=== PATIENT | female | born 1945 | race Caucasian/White ===

== ENCOUNTER → 2019-10-22 15:01 | Outpatient (BNVA) | payer MEDICARE, BC, SELFPAY | PROVIDERS: Family Provider Internal Medicine; Visit Provider Family Medicine | DX: E03.9 Hypothyroidism, unspecified (principal); I10 Essential (primary) hypertension; M54.32 Sciatica, left side | CPT/HCPCS: 80053; 80061; 84443 ==

== ENCOUNTER → 2020-03-09 11:37 | Outpatient (BNVA) | payer MEDICARE, BC, SELFPAY | PROVIDERS: Family Provider Internal Medicine; Visit Provider Family Medicine | DX: E03.8 Other specified hypothyroidism (principal); E78.49 Other hyperlipidemia; E87.5 Hyperkalemia; Z09 Encounter for follow-up examination after completed treatment for conditions other than malignant neoplasm | CPT/HCPCS: 80053; 80061; 84443; 85025 ==

== ENCOUNTER → 2020-03-21 11:56 | Outpatient (BNVA) | payer MEDICARE, BC, SELFPAY | PROVIDERS: Family Provider Internal Medicine; Visit Provider Family Medicine | DX: R79.9 Abnormal finding of blood chemistry, unspecified (principal) | CPT/HCPCS: 80048 ==

== ENCOUNTER → 2020-05-19 10:02 | Outpatient (BNVA) | payer MEDICARE, BC, SELFPAY | PROVIDERS: Family Provider Internal Medicine; Visit Provider Family Medicine | DX: R89.9 Unspecified abnormal finding in specimens from other organs, systems and tissues (principal) | CPT/HCPCS: 80053 ==

== ENCOUNTER → 2020-10-05 15:04 | Outpatient (BNVA) | payer MEDICARE, BC, SELFPAY | PROVIDERS: Family Provider Internal Medicine; Visit Provider Family Medicine | DX: L98.9 Disorder of the skin and subcutaneous tissue, unspecified (principal); E03.8 Other specified hypothyroidism; L65.9 Nonscarring hair loss, unspecified; Z68.30 Body mass index [BMI] 30.0-30.9, adult | CPT/HCPCS: 80053; 82607; 84443; 85025 ==

== ENCOUNTER 2020-11-14 18:01 | Observation (INO) | payer MEDICARE, BC, SELFPAY ==
[2020-11-14 18:23] VITALS: BP 128/78; PULSE 124; RESP 18; TEMP 36.9; O2SAT 99; BMI 29.9
--- NOTE | 2020-11-14 20:06 | XRR_ITS ---
PROCEDURE INFORMATION: Exam: XR Chest Exam date and time: 11/14/2020 8:11 PM Age: 74 years old Clinical indication: Shortness of breath; Prior surgery; Surgery type: Lt lung; Patient HX: Low blood pressue; Additional info: SOB TECHNIQUE: Imaging protocol: XR of the chest Views: 1 view. COMPARISON: No relevant prior studies available. FINDINGS: Lungs: Postsurgical changes noted in the left lung. No focal consolidation. Pleural spaces: Unremarkable. No pleural effusion. No pneumothorax. Heart/Mediastinum: No cardiomegaly. Bones/joints: No acute fracture. XR/XR chest 1V portable [id number] IMPRESSION: No acute findings.
--- NOTE | 2020-11-14 20:06 | ECG_ITS ---
[facility] Test Date: 2020-11-14 Pat Name: Melinda Stapleton Department: Room: 108 Gender: Female Manager Gallery: : 1945 Requested By: Bill Wheeler Order Number: [id number] Robert MD: Whit Lance M.D. Measurements Intervals [place] Rate: 118 P: MS: QRS: 1 QRSD: 99 T: 38 QT: 307 QTc: 432 Interpretive Statements ATRIAL FIBRILLATION WITH RAPID VENTRICULAR RESPONSE ST DEPRESSION, CONSIDER SUBENDOCARDIAL INJURY [0.1+ mV ST DEPRESSION] No previous ECG available for comparison Electronically Signed On 11-15-2020 1:14:08 CDT by Whit Lance M.D. [id number]
--- NOTE | 2020-11-14 20:13 | ED_ITS ---
HPI - General Adult General: Chief complaint: General Medical Stated complaint: low blood pressure Time Seen by Provider: 11/14/20 19:44 Source: patient Mode of arrival: ambulatory Limitations: no limitations History of Present Illness: HPI narrative: 74-year-old female states that yesterday she had the sudden feeling of her heart racing and felt very weak. She took her blood pressure at home and it was in the 80s. States this continued throughout the night she has been feeling increasingly weak. States she did not increase her Synthroid about a month ago from 100 mcg to 125 mcg. Patient was tachycardic in the waiting room 130s. She has no history of A. fib. Denies any worsening improving factors. Associated symptoms: Reports palpitations; Deny dyspnea, nausea, rash or vomiting Review of Systems Const: Denies: fever(s), chills, body aches or change in appetite Eyes: Denies: blurry vision or eye discomfort ENMT: Denies: throat pain or dental pain Card: Reports: palpitations Resp: Denies: dyspnea GI: Denies: abdominal pain, nausea, vomiting or diarrhea : Denies: dysuria Musc: Denies: neck pain or back pain Skin/Breast: Denies: rash Neuro: Reports: weakness in extremities Psych: Denies: depression Bulmaro/Lymph: Denies: easy bruising All/Imm: Denies: urticaria [facility] ED PFSH: Medical History (Updated 11/14/20 @ 20:38 by Bill Wheeler MD) Depression History of hepatitis C Hypertension Hypothyroidism Family History Other CAD (coronary artery disease) Diabetes Hypertension Stroke Social History Smoking and tobacco status: never smoked Alcohol intake: never Physical Exam Const: COMMON NORMALS: no acute distress, patient oriented x3 and healthy appearing HENMT: COMMON NORMALS: normocephalic and atraumatic HEAD & SCALP: normocephalic and atraumatic Eye: COMMON NORMALS: Equal, round and reactive pupils present and EOMs intact bilaterally PUPIL: Yes Equal, round and reactive pupils present Neck/C-Spine: COMMON NORMALS: full ROM and supple Chest: COMMONS NORMALS: normal inspection of the chest and normal palpation of entire chest wall Resp: COMMON NORMALS: normal respiratory effort, No retractions, No use of accessory muscles and clear to auscultation bilaterally AUSCULTATION: clear to auscultation bilaterally Cardio: COMMON NORMALS: No murmurs present (Cardio) RATE: tachycardic RHYTHM: abnormal rhythm irregularly irregular GI: COMMON NORMALS: Normal to inspection, nondistended, normoactive bowel sounds present, Soft to palpation, non-tender and no masses PALPATION: Yes Soft to palpation Extremity: COMMON NORMALS: normal to inspection and full ROM Neuro: COMMON NORMALS: patient oriented x3, moves all extremities and no focal motor deficits Psych: COMMON NORMALS: mental status grossly normal, Normal thought process present and cooperative THOUGHT PROCESS: Normal thought process present Skin: COMMON NORMALS: no rashes or lesions noted and no wounds GENERAL SKIN EXAM: no rashes or lesions noted Course Vital Signs: Vital signs: Vital Signs Temperature 98.4 F 11/14/20 18:23 Pulse Rate 94 11/14/20 21:14 Respiratory Rate 21 H 11/14/20 21:14 Blood Pressure 147/91 11/14/20 21:14 Pulse Oximetry 98 11/14/20 21:14 MDM - General Adult MDM Narrative: Medical decision making narrative: Melinda presents here with feeling near syncope and hypotension yesterday likely due to new onset A. fib. From her history I believe she was likely in A. fib yesterday. She is in A. fib with RVR here is new onset. She did recently have her Synthroid increased and her thyroid level is slightly high. Patient's heart rate here is much improved on Cardizem. Spoke to hospitalist will admit. Lab Data: Labs: Lab Results 11/14/20 11/14/20 11/14/20 Range/Units 20:23 20:23 20:23 WBC Cancelled Corrected WBC Cancelled RBC Cancelled Hgb Cancelled Hct Cancelled MCV Cancelled MCH Cancelled MCHC Cancelled RDW Cancelled Plt Count Cancelled MPV Cancelled Gran % Cancelled Neut % (Auto) Cancelled Lymph % (Auto) Cancelled [place] % (Auto) Cancelled Eos % (Auto) Cancelled Baso % (Auto) Cancelled Neut # (Auto) Cancelled Lymph # (Auto) Cancelled [place] # (Auto) Cancelled Eos # (Auto) Cancelled Baso # (Auto) Cancelled Absolute Gran (aut o) Cancelled Nucleated RBC % (a uto) Cancelled Nucleated RBCs # Cancelled Sodium 132 L (136-145) mmol/L Potassium 4.2 (3.5-5.1) mmol/L Chloride 94 L (98-107) mmol/L Carbon Dioxide 24 (22-29) mmol/L Anion Gap 18.2 (5-19) BUN 19 (8-23) mg/dL Creatinine 0.8 (0.5-0.9) mg/dL GFR Calculation Not Reportable Glucose 98 (65-115) mg/dL Calculated Osmolal ity 276 L (285-295) mOsm/k g Calcium 9.5 (8.5-10.5) mg/dL Total Bilirubin 1.4 H (0.15-1.2) mg/dL AST 28 (0-32) U/L ALT 18 (0-33) U/L Alkaline Phosphata se 69 (35-105) IU/L Troponin T Baselin e 19 H (0-10) ng/L Total Protein 8.0 (6.6-8.7) g/dL Albumin 5.0 (3.5-5.2) g/dL Globulin 3.0 (1.3-4.6) g/dL TSH 0.24 L (0.27-4.20) uIU/ mL Free T4 2.16 H (0.82-1.77) ng/d L 11/14/20 Range/Units 20:51 WBC 7.8 Corrected WBC RBC 4.82 Hgb 14.4 Hct 43.8 MCV 90.9 MCH 29.9 MCHC 32.9 RDW 13.2 Plt Count 179 MPV 9.3 Gran % Neut % (Auto) 71.8 Lymph % (Auto) 18.4 [place] % (Auto) 7.8 Eos % (Auto) 0.6 Baso % (Auto) 0.8 Neut # (Auto) 5.60 Lymph # (Auto) 1.4 [place] # (Auto) 0.6 Eos # (Auto) 0.1 Baso # (Auto) 0.1 Absolute Gran (aut o) Nucleated RBC % (a uto) 0 Nucleated RBCs # 0.0 Sodium (136-145) mmol/L Potassium (3.5-5.1) mmol/L Chloride (98-107) mmol/L Carbon Dioxide (22-29) mmol/L Anion Gap (5-19) BUN (8-23) mg/dL Creatinine (0.5-0.9) mg/dL GFR Calculation Glucose (65-115) mg/dL Calculated Osmolal ity (285-295) mOsm/k g Calcium (8.5-10.5) mg/dL Total Bilirubin (0.15-1.2) mg/dL AST (0-32) U/L ALT (0-33) U/L Alkaline Phosphata se (35-105) IU/L Troponin T Baselin e (0-10) ng/L Total Protein (6.6-8.7) g/dL Albumin (3.5-5.2) g/dL Globulin (1.3-4.6) g/dL TSH (0.27-4.20) uIU/ mL Free T4 (0.82-1.77) ng/d L Imaging Data^: CXR: Attestation: I personally reviewed and interpreted this imaging study as follows: My impression: no acute abnormality EKG Data^: EKG 1: Attestation: I personally reviewed and interpreted this EKG as follows: EKG interpretation date: 11/14/20 EKG interpretation time: 20:32 Interpretation: afib hr [address] or t wave abnormalities qrs 99 qtc 377 Critical Care Time Critical Care Time: Critical Care Time: Yes Total Critical Care Time: 35 Attestation: This case had a high probability of a clinically significant, sudden, or life threatening deterioration of this patient's condition which required my full and direct attention, intervention and personal management. Discharge Plan Discharge Patient Disposition: Admitted As Inpatient Admit Provider: Betzaida Short Clinical Impression: Atrial fibrillation with RVR Condition: Stable Coding Level of Care Code ED Tool Repair Technician for Chg Fwd Exam Comprehensive
[2020-11-14] MEDS: sodium chloride 0.9% 1,000 ML 999 ML IV (20:24)
[2020-11-14 20:37] VITALS: BP 146/101; PULSE 139; RESP 31; O2SAT 98
[2020-11-14 20:52] LABS: Troponin(5th) Baseline 19 ng/L (0-10)
[2020-11-14 20:58] LABS: Basophils # 0.1 10^3/uL (0.0-0.1); Basophils % 0.8 %; Eosinophils # 0.1 10^3/uL (0.0-0.8); Eosinophils % 0.6 %; Hematocrit 43.8 % (37.0-47.0); Hemoglobin 14.4 g/dL (11.5-15.3); Lymphocytes # 1.4 10^3/uL (0.8-4.8); Lymphocytes % 18.4 %; Mean Corpuscular HGB Conc 32.9 g/dL (30.0-36.0); Mean Corpuscular Hemoglobin 29.9 pg (28.0-34.0); Mean Corpuscular Volume 90.9 fL (81-99); Mean Platelet Volume 9.3 fL (7.4-10.4); Monocytes # 0.6 10^3/uL (0.2-0.9); Monocytes % 7.8 %; Neutrophils % 71.8 %; Nucleated Red Blood Cells % 0 %; Platelet Count 179 10^3/cmm (130-400); Red Blood Count 4.82 10^6/uL (4.1-5.3); Red Cell Distribution Width 13.2 % (12.1-15.1); White Blood Count 7.8 10^3/uL (4.0-10.0)
[2020-11-14 21:02] LABS: Alkaline Phosphatase 69 IU/L (35-105); Blood Urea Nitrogen 19 mg/dL (8-23); Calcium 9.5 mg/dL (8.5-10.5); Carbon Dioxide 24 mmol/L (22-29); Chloride 94 mmol/L (98-107); Free T4 Free Thyroxine 2.16 ng/dL (0.82-1.77); Glucose 98 mg/dL (65-115); Osmolality Calculated 276 mOsm/kg (285-295); Sodium 132 mmol/L (136-145); Thyroid Stimulating Hormone 0.24 uIU/mL (0.27-4.20); Total Bilirubin 1.4 mg/dL (0.15-1.2)
[2020-11-14 21:07] LABS: Alanine Aminotransferase 18 U/L (0-33); Anion Gap 18.2 (5-19); Aspartate Amino Transferase 28 U/L (0-32); Potassium 4.2 mmol/L (3.5-5.1)
[2020-11-14 21:14] VITALS: BP 147/91; PULSE 94; RESP 21; O2SAT 98
[2020-11-14 21:37] VITALS: BP 164/101; PULSE 107; RESP 26; O2SAT 98
--- NOTE | 2020-11-14 21:37 | PM.HP ---
Providers/Chief Complaint Admitting Physician: Betzaida Short MD Primary Care Provider: Ayesha Bhatia MD Chief Complaint: low blood pressure History of Present Illness Melinda Stapleton is a 74 year old female who presented today with chief complaint of presyncope and palpitations. Patient is stating that her symptoms started on Saturday when she could not go to the jainism because she was not feeling well, she was experiencing presyncopal, her heart rate was 125, when her daughter checked on her after jainism, she was still not feeling well and decided to watch overnight, next day her heart rate was consistently around 1 20-1 30s, she went to a satellite clinic where she was recommended to go to the ER for further evaluation. She is denying chest pain, shortness of breath, nausea, vomiting, diarrhea. She is stating that recently her levothyroxine dose was increased from 100 mcg [address] Coleman because of weight gain. Diagnosis in the ER revealed A. fib RVR she was asymptomatic with normal hemodynamics. She was started on Cardizem drip when I saw her she was at Cardizem drip 10 mg/h heart rate fluctuated between 89-1 12, I started her on Eliquis, discussed indication, complications of anticoagulating agent EKG showing A. fib RVR without ischemic or infarctive changes, troponin not similarly high TSH suppressed with high free T4 Chest x-ray unremarkable Review of Systems Const: Reports: body aches and fatigue; Denies: fever(s) or chills Eyes: Denies: change in vision ENMT: Denies: throat pain Card: Denies: chest pain Resp: Reports: dyspnea GI: Denies: abdominal pain : Denies: flank pain Musc: Denies: neck pain Skin/Breast: Denies: rash Neuro: Denies: headache(s) Psych: Denies: anxiety Endo: Denies: polyuria Bulmaro/Lymph: Denies: easy bruising All/Imm: Denies: urticaria Medications/Allergies Home Medications Medication Instructions Recorded Confirmed Last Taken Type diclofenac sodium 1 % topical gel 2 gm TOPICAL QID #100 gm 10/22/19 11/14/20 Unknown Rx tramadol 50 mg tablet 50 mg PO BID PRN #30 tab 06/06/20 11/14/20 Unknown Rx Probiotic 1 tab PO DAILY@1100 11/14/20 11/14/20 11/14/20 History Refresh Dry Eye Therapy See Rx Instructions .ROUTE .COMPLEX 11/14/20 11/14/20 11/14/20 History Vitamin B-12 1 ea SUBLINGUAL DAILY@109911/14/20 11/14/20 11/14/20 History Vitamin C 1 tab PO DAILY@1100 11/14/20 11/14/20 11/14/20 History Vitamin D3 1 tab PO DAILY@1100 11/14/20 11/14/20 11/14/20 History amlodipine 5 mg PO DAILY@109911/14/20 11/14/20 11/14/20 History aspirin [Aspir-81] 81 mg PO DAILY@109911/14/20 11/14/20 11/14/20 History calcium carbonate [Caltrate 600] 600 mg PO DAILY@109911/14/20 11/14/20 11/14/20 History elderberry fruit and flower 1 cap PO DAILY@109911/14/20 11/14/20 11/14/20 History levothyroxine 125 mcg PO DAILY@109911/14/20 11/14/20 11/14/20 History losartan 100 mg PO DAILY@1100 11/14/20 11/14/20 11/14/20 History lysine 1 tab PO DAILY@109911/14/20 11/14/20 11/14/20 History Allergies Allergy/AdvReac Type Severity Reaction Status Date / Time Sulfa (Sulfonamide Allergy Mild ALGY-Rash Verified 11/14/20 18:23 Antibiotics) diazepam [From Valium] Allergy Unknown Verified 11/14/20 18:23 PFSH Acute PFSH: Medical History Benign skin lesion of face Depression Graves disease Status post iodine treatment Hair loss Hiatal hernia History of hepatitis C Hyperlipidemia Hypertension Hypothyroidism Left sciatic nerve pain Low back pain with sciatica Shingles outbreak Surgical History H/O: hysterectomy History of lung surgery After aspiration from hiatal hernia wedge resection Family History Other CAD (coronary artery disease) Diabetes Hypertension Stroke Social History Smoking and tobacco status: never smoked Alcohol intake: never Vitals/I&O/Wt Last Vital Signs Temp 98.4 F 11/14/20 18:23 Pulse 94 11/14/20 21:14 Resp 21 H 11/14/20 21:14 BP 147/91 11/14/20 21:14 Pulse Ox 98 11/14/20 21:14 Weight last 48 hrs Weight 81.647 kg Physical Exam Narrative: EXAM NARRATIVE: elderly female appears younger than stated age does not look fluid overloaded or dehydrated S1, S2 variable with systolic murmur grade 2/6 more prominent in right second intercostal space No acute respiratory distress bilateral breath sounds without adventitious rhonchi or crackles Abdomen soft nontender bowel sound present Lower extremity nonpitting edema Appropriate mood and affect EOMI, PERRLA No neurological deficits, she is awake alert oriented x3 No active chest pain Data : 11/14/20 20:51 11/14/20 20:23 A&P Assessment and plan (1) Atrial fibrillation with RVR: Status: Acute (2) Hypothyroidism: Status: Acute Qualifiers: Hypothyroidism type: other Qualified Code(s): E03.8 - Other specified hypothyroidism Additional A&P Information New onset A. fib with RVR Presyncopal episode on Saturday EKG without ischemic or infarct changes consistent with A. fib Currently on Cardizem drip 10 mg/h which will be titrated down overnight, she will be overlapped with metoprolol tartrate 25 twice a day Calvin Vascor is 4 we will start her on Eliquis 5 mg twice a day, indications, complications explained to the patient Check magnesium level, potassium level normal Echo in the morning, troponin not elevated, will request BNP and D-dimer to rule out PE Hypothyroidism: Patient has history of Graves' disease for which she received radioactive iodine treatment, currently her levothyroxine dose was increased 125 mcg, I will reduce to 112 mcg, repeat TSH in 4 to 6 weeks and follow-up with PCP Cardiac diet DVT prophylaxis: Not needed currently on Eliquis Goals of care discussed with the patient: DNR/DNI Attestations Medical Necessity Statement*: Anticipating discharge in less than 48 hours continued IV medication for A. fib RVR Time Spent in Patient Care: (>than 50% of time spent in counselling and/or direct pt care on unit). 40mins Coding Level of Care Code Acute Trophy Assembler for Chg Fwd Diagnoses Atrial fibrillation with RVR I48.91 Hypothyroidism E03.8 Hypothyroidism type: other
[2020-11-14 22:23] LABS: D Dimer 0.43 ug/mIFEU (0-0.59)
[2020-11-14 22:36] LABS: Magnesium 1.9 mg/dL (1.7-2.3); NT Pro B Type Natriuretic Pept 2907 pg/mL (0-450)
[2020-11-14 23:00] LABS: Troponin 5 2HR 18.43 ng/L (0-10)
[2020-11-14 23:06] LABS: Troponin 5 2HR Delta -0.57 ABS# (0-10)
[2020-11-14] MEDS: apixaban 5 mg Tablet PO (23:40)
[2020-11-15] VITALS (8 sets, daily range): BP systolic 132–180; BP diastolic 65–97; PULSE 76–94; RESP 19–24; TEMP 36.6–37.1; O2SAT 94–98
[2020-11-15 02:57] LABS: Anion Gap 13.5 (5-19); Blood Urea Nitrogen 17 mg/dL (8-23); Calcium 8.9 mg/dL (8.5-10.5); Carbon Dioxide 25 mmol/L (22-29); Chloride 108 mmol/L (98-107); Glucose 94 mg/dL (65-115); Osmolality Calculated 297 mOsm/kg (285-295); Potassium 3.5 mmol/L (3.5-5.1); Sodium 143 mmol/L (136-145)
[2020-11-15 02:59] LABS: Troponin 5 6HR 20.75 ng/L (0-10); Troponin 5 6HR Delta 1.75 ng/L (0-12)
--- NOTE | 2020-11-15 05:00 | USCV_ITS ---
Melinda Stapleton Age: 74 Gender: F : 1945 Exam Date: 11/15/2020 08:56 Ordering Phys: Betzaida Short MD Technologist: Vineet Marrero Exam Location: [facility] [place] Indication: AFIB BP: 151 / 78 HR: 85 Rhythm: Sinus Technical Quality: Fair MEASUREMENTS (Male / Female) Normal Values 2D ECHO LV Diastolic Diameter PLAX 3.3 cm 4.2 - 5.9 / 3.9 - 5.3 cm LV Systolic Diameter PLAX 2.1 cm IVS Diastolic Thickness 1.0 cm 0.6 - 1.0 / 0.6 - 0.9 cm IVS Systolic Thickness 1.2 cm LVPW Diastolic Thickness 1.0 cm 0.6 - 1.0 / 0.6 - 0.9 cm LVPW Systolic Thickness 1.2 cm LVOT Diameter 2.1 cm LV Ejection Fraction 2D Teich 73.2 % LV Ejection Fraction MOD 2C 71.2 % LV Ejection Fraction 2C AL 70.9 % LA Diameter 3.2 cm LA Width 3.1 cm LA Height 4.7 cm RA Width 3.2 cm RA Height 4.7 cm Aorta at Sinotubular Diameter 2.6 cm M-MODE LV Diastolic Diameter MM 5.8 cm 4.2 - 5.9 / 3.9 - 5.3 cm LV Systolic Diameter MM 4.3 cm LV Ejection Fraction MM Teich 50.8 % IVS Diastolic Thickness MM 1.0 cm 0.6 - 1.0 / 0.6 - 0.9 cm IVS Systolic Thickness MM 1.3 cm LVPW Diastolic Thickness MM 1.2 cm 0.6 - 1.0 / 0.6 - 0.9 cm LVPW Systolic Thickness MM 1.8 cm RV Diastolic Diameter MM 1.4 cm Aortic Annulus Diameter 3.4 cm LA Ao Ratio MM 1.0 MV E Point Septal Separation 0.6 cm DOPPLER AV Peak Velocity 282.0 cm/s LVOT Peak Velocity 116.0 cm/s AV Area Cont Eq vti 1.2 cm squared AV Area Cont Eq pk 1.4 cm squared MV Area PHT 5.0 cm squared Mitral E to A Ratio 4.4 MV E' Velocity 84.0 cm/s Mitral E to MV E' Ratio 12.8 Mitral E to LV E' Lateral Ratio 12.0 Mitral E to LV E' Septal Ratio 13.9 TR Peak Velocity 295.0 cm/s TR Peak Gradient 34.8 mmHg TV Peak E Velocity 102.0 cm/s Right Atrial Pressure 8.0 mmHg Pulmonary Artery Systolic Pressu 42.8 mmHg PV Peak Velocity 87.0 cm/s FINDINGS Left Ventricle Normal left ventricular size and systolic function, EF 71 %. Mild left ventricular hypertrophy. No regional wall motion abnormalities. Right Ventricle The right ventricle is normal in size and function. Right Atrium The right atrium is normal in size. Left Atrium Echodensity in the interatrial septum Mitral Valve Thickened mitral valve. Moderate mitral annular calcification. Aortic Valve Thickened aortic valve. Peak velocity across the valve is 2.8 m/s . The valve area was calculated to be 1.3 cm squared Tricuspid Valve Moderate tricuspid valve regurgitation. Pulmonic Valve Mild pulmonary valve regurgitation. Pericardium Trivial pericardial effusion. Aorta Normal ascending aorta dimension. CONCLUSIONS Normal left ventricular size and systolic function, EF 71 %. Mild left ventricular hypertrophy. No regional wall motion abnormalities. Mild ro moderate aortic valve stenosis with a valve area 1.3 cm squared Thickened mitral valve. Moderate mitral annular calcification. Estimated pulmonary artery peak systolic pressure is 35 mmHg Mild pulmonary valve regurgitation. Trivial pericardial effusion There are no intracardiac masses. No previous study is available for comparison. Dr Whit Lance MD [facility] (Electronically Signed) Final Date: 17 November 2020 00:12 S
[2020-11-15] MEDS: levothyroxine 112 mcg Tablet PO (05:06)
[2020-11-15] MEDS: magnesium oxide 400 mg tablet PO (09:50)
[2020-11-15] MEDS: apixaban 5 mg Tablet PO (09:50)
[2020-11-15] MEDS: metoprolol tartrate 25 mg Tablet 50 MG PO (09:51)
[2020-11-15] MEDS: losartan 50 mg Tablet 100 MG PO (09:56)
[2020-11-15] MEDS: aspirin 81 mg EC Tablet PO (09:56)
--- NOTE | 2020-11-15 14:53 | PM.DCS ---
Discharge Providers Date of Admission: 11/14/20 21:02 Date of Discharge: November 15, 2020 Attending Provider at Admission: Betzaida Short MD Attending Provider at Discharge: Miguel A Bhagat MD Primary Care Provider: Ayesha Bhatia MD Diagnoses at Discharge Discharge Diagnosis (1) Atrial fibrillation with RVR: Status: Acute (2) Hypothyroidism: Status: Acute Qualifiers: Hypothyroidism type: other Qualified Code(s): E03.8 - Other specified hypothyroidism Reason for Visit Reason for Visit: low blood pressure Hospital Course Hospital Course Melinda is a 74-year-old white female who presented to the hospital with feelings of palpitations and presyncope. She was found to have atrial fibrillation with rapid ventricular rate. She was placed on a Cardizem drip. [id number] score was calculated and was 4 so Eliquis was initiated. Metoprolol was started. With this Cardizem was discontinued early in the morning on November 15. Patient tolerated metoprolol without any concerns. Heart rate was approximately 75, atrial fibrillation throughout monitoring on November 15 and blood pressure was 130s over 70s. She had no symptoms with ambulation. Heart rate went up appropriately with ambulation to around 110 and rapidly decreased back to 75-80 when resting. Echocardiogram was performed and preliminary report demonstrated preserved EF, moderate aortic stenosis and moderate tricuspid regurgitation. She will follow-up with cardiology in 2 weeks. Risks and benefits of anticoagulation were discussed with her and her family and she wished to proceed with anticoagulation. Her thyroid hormone was adjusted downward based on her TSH. She was instructed to follow-up with her primary in 3 to 5 days and cardiology 2 weeks. Physical Exam Narrative: EXAM NARRATIVE: General exam is no apparent distress, conversant and pleasant Neck is supple no lymphadenopathy or thyromegaly Cardiovascular irregular, irregular without murmur Lungs clear Abdomen is soft with positive bowel sounds Extremities no cyanosis clubbing or edema Discharge Data Data Completed and Pending: Completed Studies During Hospitalization Category Date Time Status XR chest 1V noel ble [id number] Stat Exams 11/14/20 20:06 Completed Pending at discharge Category Date Time Status CV echo complete* [id number] Routine Ultrasound 11/15/20 05:00 Taken Labs from last 24 hours 11/15/20 11/15/20 11/14/20 01:52 01:52 22:20 WBC Corrected WBC RBC Hgb Hct MCV MCH MCHC RDW Plt Count MPV Gran % Neut % (Auto) Lymph % (Auto) [place] % (Auto) Eos % (Auto) Baso % (Auto) Neut # (Auto) Lymph # (Auto) [place] # (Auto) Eos # (Auto) Baso # (Auto) Absolute Gran (aut o) Nucleated RBC % (a uto) Nucleated RBCs # D-Dimer Sodium 143 Potassium 3.5 Chloride 108 H Carbon Dioxide 25 Anion Gap 13.5 BUN 17 Creatinine 0.7 GFR Calculation Not Reportable Glucose 94 Calculated Osmolal ity 297 H Calcium 8.9 Magnesium Total Bilirubin AST ALT Alkaline Phosphata se Troponin T Baselin e Troponin T 120 Min [place] 18.43 H Delta Troponin T -0.57 L Troponin T Hi Sens 6Hr 20.75 H Troponin T Hi Sens 6Hr Delta 1.75 NT-Pro-B Natriuret Pep Total Protein Albumin Globulin TSH Free T4 11/14/20 11/14/20 11/14/20 20:51 20:51 20:51 WBC 7.8 Corrected WBC RBC 4.82 Hgb 14.4 Hct 43.8 MCV 90.9 MCH 29.9 MCHC 32.9 RDW 13.2 Plt Count 179 MPV 9.3 Gran % Neut % (Auto) 71.8 Lymph % (Auto) 18.4 [place] % (Auto) 7.8 Eos % (Auto) 0.6 Baso % (Auto) 0.8 Neut # (Auto) 5.60 Lymph # (Auto) 1.4 [place] # (Auto) 0.6 Eos # (Auto) 0.1 Baso # (Auto) 0.1 Absolute Gran (aut o) Nucleated RBC % (a uto) 0 Nucleated RBCs # 0.0 D-Dimer 0.43 Sodium Potassium Chloride Carbon Dioxide Anion Gap BUN Creatinine GFR Calculation Glucose Calculated Osmolal ity Calcium Magnesium 1.9 Total Bilirubin AST ALT Alkaline Phosphata se Troponin T Baselin e Troponin T 120 Min [place] Delta Troponin T Troponin T Hi Sens 6Hr Troponin T Hi Sens 6Hr Delta NT-Pro-B Natriuret Pep 2907 H Total Protein Albumin Globulin TSH Free T4 11/14/20 11/14/20 11/14/20 20:23 20:23 20:23 WBC Cancelled Corrected WBC Cancelled RBC Cancelled Hgb Cancelled Hct Cancelled MCV Cancelled MCH Cancelled MCHC Cancelled RDW Cancelled Plt Count Cancelled MPV Cancelled Gran % Cancelled Neut % (Auto) Cancelled Lymph % (Auto) Cancelled [place] % (Auto) Cancelled Eos % (Auto) Cancelled Baso % (Auto) Cancelled Neut # (Auto) Cancelled Lymph # (Auto) Cancelled [place] # (Auto) Cancelled Eos # (Auto) Cancelled Baso # (Auto) Cancelled Absolute Gran (aut o) Cancelled Nucleated RBC % (a uto) Cancelled Nucleated RBCs # Cancelled D-Dimer Sodium 132 L Potassium 4.2 Chloride 94 L Carbon Dioxide 24 Anion Gap 18.2 BUN 19 Creatinine 0.8 GFR Calculation Not Reportable Glucose 98 Calculated Osmolal ity 276 L Calcium 9.5 Magnesium Total Bilirubin 1.4 H AST 28 ALT 18 Alkaline Phosphata se 69 Troponin T Baselin e 19 H Troponin T 120 Min [place] Delta Troponin T Troponin T Hi Sens 6Hr Troponin T Hi Sens 6Hr Delta NT-Pro-B Natriuret Pep Total Protein 8.0 Albumin 5.0 Globulin 3.0 TSH 0.24 L Free T4 2.16 H Vitals: Last Vital Signs Temp 98.6 F 11/15/20 11:41 Pulse 76 11/15/20 11:41 Resp 19 H 11/15/20 11:41 BP 134/76 11/15/20 11:41 Pulse Ox 98 11/15/20 11:41 Discharge Plan Discharge Patient Disposition: Home Condition: Stable Prescriptions: New Eliquis 5 mg Tablet 5 mg PO BID@0900,2099 Qty: 60 RF: 0 levothyroxine 112 mcg Tablet 112 mcg PO QAM Qty: 30 RF: 0 metoprolol tartrate 25 mg Tablet 50 mg PO BID@899,2099 Qty: 60 RF: 0 Continued diclofenac sodium [Voltaren] 1 % gel 2 gm TOPICAL QID Qty: 100 RF: 1 tramadol 50 mg tablet 50 mg PO BID PRN (Reason: pain) Qty: 30 RF: 0 Aspir-81 81 mg Tablet,Delayed Release (Dr/Ec) 81 mg PO DAILY@1100 RF: 0 Caltrate 600 600 mg calcium (1,500 mg) Tablet 600 mg PO DAILY@1100 RF: 0 elderberry fruit and flower 460-115 mg Capsule 1 cap PO DAILY@1100 RF: 0 Probiotic 1 tab PO DAILY@1100 RF: 0 Refresh Dry Eye Therapy See Rx Instructions .ROUTE .COMPLEX RF: 0 Vitamin B-12 1 ea sublingual DAILY@1100 RF: 0 Vitamin C 1 tab PO DAILY@1100 RF: 0 Vitamin D3 1 tab PO DAILY@1100 RF: 0 lysine 1 tab PO DAILY@1100 RF: 0 losartan 100 mg tablet 100 mg PO DAILY@1100 RF: 0 Discontinued amlodipine 5 mg tablet 5 mg PO DAILY@1100 RF: 0 levothyroxine 125 mcg tablet 125 mcg PO DAILY@1100 RF: 0 Referrals: Rukhsana Espinal MD [Physician] - 2 weeks Ayesha Bhatia MD [Primary Care Provider] - 4-7 days Discharge Diet: Cardiac Discharge Activity: Increase activity as tolerated Activity Restrictions/Additional Instructions: Take all medicine as prescribed. Monitor for nosebleeds, black or tarry stools or bright red blood per rectum and notify primary care provider if this occurs. Discharge Attestations Time Spent in Discharge Care*: greater than 30 min Quality Metrics Clinical Quality Measures During this hospital stay, did patient experience: None Coding Level of Care Code Acute Chg FW DC note Diagnoses Atrial fibrillation with RVR I48.91 Hypothyroidism E03.8 Hypothyroidism type: other
--- NOTE | 2020-11-15 16:48 | PC.NURSE ---
discharge instructions given and explained.pt verb understanding of instructions.discharged via w/c to exit.daughter to drive pt home
== END 2020-11-15 16:50 | disposition home or self-care (01) ==
LOC: ER 20:38 → CSU 21:24
PROVIDERS: Admitting Provider Internal Medicine; Emergency Provider Emergency Medicine; PCP Family Medicine; Visit Provider Internal Medicine
DX: I48.91 Unspecified atrial fibrillation (principal); E03.8 Other specified hypothyroidism; I35.0 Nonrheumatic aortic (valve) stenosis; I05.9 Rheumatic mitral valve disease, unspecified; I37.1 Nonrheumatic pulmonary valve insufficiency; E78.5 Hyperlipidemia, unspecified; I10 Essential (primary) hypertension; Z82.49 Family history of ischemic heart disease and other diseases of the circulatory system; Z83.3 Family history of diabetes mellitus
CPT/HCPCS: 36415; 71045; 80048; 80053; 83735; 83880; 84439; 84443; 84484; 85025; 85378; 93005; 93306; 96365; 96366; 96375; 99291; G0378; J3490; J7030

== ENCOUNTER → 2021-01-23 10:39 | Outpatient (BNVA) | payer MEDICARE, BC, SELFPAY | PROVIDERS: PCP Family Medicine; Visit Provider Family Medicine | DX: E03.8 Other specified hypothyroidism (principal); I10 Essential (primary) hypertension | CPT/HCPCS: 80053; 84443; 85025 ==

== ENCOUNTER 2021-02-14 08:19 | Outpatient (CLI) | payer MEDICARE, BC, SELFPAY ==
--- NOTE | 2021-02-14 08:47 | ECG_ITS ---
[facility] Test Date: 2021-02-14 Pat Name: Melinda Stapleton Department: Room: Gender: Female Dovetailer: Vicky Darden : 1945 Requested By: Rukhsana Espinal Order Number: [id number] Robert MD: Rukhsana Espinal M.D. Interpretive Statements NAME OF STUDY: LEXISCAN SESTAMIBI STRESS TEST INDICATION: Chest Pain PROCEDURE: At the baseline, the blood pressure was 172/101 mmHg, oxygen saturation 94% with a heart rate of 85 bpm. The electrocardiogram showed atrial fibrillation with controlled ventricular response. Normal axis with possible old anterior infarct. Nonspecific ST-T wave changes. The Lexiscan was infused over a period of 20 seconds. A total of 0.4 milligrams of Lexiscan was infused. The stress phase was continued for a total of 5 minutes. Heart rate at the end of the stress phase was 99 bpm, oxygen saturation 93% with a blood pressure of 154/72 mmHg. The EKG at the peak infusion revealed no significant ST-T wave changes. The study was terminated due to protocol completion. Sestamibi was injected 20 seconds after the Lexiscan infusion. Blood pressure at the end of the recovery phase was 129/87 mmHg, oxygen saturation 91% with a heart rate of 93 beats per minute. CONCLUSION: 1. No significant EKG changes with the LexiScan infusion. 2. No LexiScan induced chest pain or cardiac arrhythmia. 3. Normal blood pressure and heart rate response. 4. Sestamibi/sestamibi perfusion scan pending; see separate report. Electronically Signed On 02-20-2021 13:02:23 CDT by Rukhsana Espinal M.D. [id number]
--- NOTE | 2021-02-14 08:47 | NMCV_ITS ---
NM eric perf SPECT r/s* [id number] Stapleton Melinda Age: 75 Gender: F : 1945 Exam Date: 02/14/2021 09:53 Ordering Phys: Rukhsana Espinal MD ([email or web address]) Technologist: SANDRA Stern Exam Location: [facility] Indications: DYSPNEA ON EXERTION STRESS TEST Please see separate stress test report in [facility] for full findings IMAGE PROTOCOL Rest/Stress 1 Lexiscan Day Radiopharmaceutical Dose (mCi) Administration Site Administered by Rest: Tc-99m 10.8 IV SANDRA Stern Sestamibi Stress:Tc-99m 32.7 IV SANDRA Dave Sestamibi Rest: 14-Feb-2021 60 Discovery 630 Stress: 14-Feb-2021 30 Discovery 630 0.4mg Lexiscan. Images obtained in supine and prone position. SPECT RESULTS Technical Quality: Excellent Raw Data Analysis: Normal Image Corrections: No attenuation or motion correction applied Summed Stress Score: 0 Summed Rest Score: 0 Summed Difference Score: 0 PERFUSION FINDINGS SPECT images demonstrate homogeneous tracer distribution throughout the myocardium. FUNCTIONAL RESULTS (calculated via Gated SPECT) Stress Image LV EF (%): 84 Stress EDV (mL):51 TID: 0.93 Stress ESV (mL):8 FUNCTIONAL FINDINGS: The left ventricle is normal in size. Transient Ischemia Dilatation of 0.93. There is normal left ventricular systolic function. The left ventricular ejection fraction is hyperdynamic with a value of 84%. There is normal left ventricular wall thickening with no regional wall motion abnormality. IMPRESSIONS 1. Myocardial perfusion imaging is normal. 2. Overall left ventricular systolic function is normal without regional wall motion abnormalities. 3. The left ventricular ejection fraction is hyperdynamic with a value of 84%. 4. Scan indicates low risk for cardiac events. Rukhsana Espinal MD (Electronically Signed) Final Date: 16 February 2021 19:43 S
[2021-02-14 08:48] VITALS: BMI 27.9
[2021-02-14] MEDS: regadenoson 0.4 Mg/5 ml Syringe IVP (10:39)
[2021-02-14] MEDS: ondansetron 2 mg/ML SDV 2 mL 4 MG IVP (10:39)
[2021-02-14 10:42] VITALS: BP 129/87; PULSE 93
== END 2021-02-14 08:20 | disposition home or self-care (01) ==
LOC: CDL 08:27
PROVIDERS: PCP Family Medicine; Visit Provider Internal Medicine Cardiovascular Disease
DX: R07.9 Chest pain, unspecified (principal); R06.02 Shortness of breath
CPT/HCPCS: 78452; 93017; A9500; J2405; J2785

== ENCOUNTER → 2021-04-13 08:50 | Outpatient (BNVA) | payer MEDICARE, BC, SELFPAY | PROVIDERS: PCP Family Medicine; Visit Provider Family Medicine | DX: E78.49 Other hyperlipidemia (principal); E87.5 Hyperkalemia; I10 Essential (primary) hypertension; E03.8 Other specified hypothyroidism; E55.9 Vitamin D deficiency, unspecified; E53.8 Deficiency of other specified B group vitamins | CPT/HCPCS: 80053; 80061; 82306; 82607; 84443 ==

== ENCOUNTER 2021-04-28 11:08 | Emergency (ER) | payer MEDICARE, BC, SELFPAY ==
[2021-04-28 11:49] VITALS: BP 138/81; PULSE 72; RESP 19; TEMP 36.5; O2SAT 100; BMI 26.3
--- NOTE | 2021-04-28 12:23 | ED_ITS ---
HPI - Extremity Problem General: Chief complaint: Extremity Problem,Nontraumatic Stated complaint: SENT BY PCP: POSS BLOOD CLOT IN LEG Time Seen by Provider: 04/28/21 12:22 History of Present Illness: HPI Narrative: Ms. Stapleton is a 75-year-old lady with history of hypertension, hyperlipidemia, hypothyroidism, atrial fibrillation on anticoagulation and history of varicose veins who presents emergency department due to leg pain and concern for DVT. She has noticed increased aches and hyperalgias. She notes generalized discomfort associated with varicose veins for a number of years however this is worse than baseline. She has various spots of tenderness to palpation and a area of raised increased tenderness on the right lateral calf region and right posterior calf. Quality is aching. Intensity is moderate and become severe with palpation. No other new changes in health reported, no worsening shortness of breath or associated chest pain. Review of Systems General: Reports: 10 or more systems reviewed and unremarkable except in HPI and below PFSH ED PFSH: Medical History Aortic stenosis Benign skin lesion of face Depression Graves disease Status post iodine treatment Hair loss Hiatal hernia History of hepatitis C Hyperlipidemia Hypertension Hypothyroidism Left sciatic nerve pain Low back pain with sciatica Shingles outbreak Surgical History H/O: hysterectomy History of lung surgery After aspiration from hiatal hernia wedge resection Family History Other CAD (coronary artery disease) Diabetes Hypertension Stroke Social History Smoking and tobacco status: never smoked Second hand smoke exposure: No Alcohol intake: never Lives independently: No Household members: children Marital status: / service: No Current occupational status: retired History of recent travel: No Current gender identity: Female Physical Exam Narrative: EXAM NARRATIVE: GENERAL/CONSTITUTIONAL - well-appearing. No acute distress. Eyes - PERRL, no conjunctival injection ENMT - Atraumatic external nose and ears. Moist mucous membranes NECK - supple. trachea midline CARDIOVASCULAR - regular rate and rhythm. Peripheral pulses 2+ and equal RESPIRATORY -clear to auscultation bilaterally. No retractions or accessory muscle use. ABDOMEN/GI - Nontender/Nondistended. No tenderness to percussion or evidence of peritonitis MSK - Extremities without obvious deformity. Bilateral lower extremities with varicosities that are tender to palpation. Additionally there are scattered areas of worse point tenderness and mild irregularities with opposed to swelling. The region of tenderness on the right lateral lower leg does not appear superinfected and there is no fluctuance appreciated however it is tender to palpation. SKIN - Warm, Dry NEURO - alert and appropriately oriented. strength and sensation intact. Moves all extremities equally. PSYCH - Appropriate mood and affect Course ED course: - Patient was seen and evaluated by me at bedside -Vital signs obtained - Initial evaluation notable for exam as noted above. exam with bilateral areas of increased firmness and tenderness as well as area of reported concern - Imaging notable for no evidence of DVT, area of concern likely thrombosed varicose veins. - Upon serial reexamination after treatment the patient was similar - Based on patient history, evaluation, labs, and imaging as interpreted the most likely cause of the patient's condition is thrombosed varicose vein without superimposed infection - The results of ED evaluation were discussed with the patient including prescriptions and/or symptomatic cares (if applicable) including appropriate and responsible use, followup plan, and return precautions. The patient verbalized understanding and felt safe for discharge. - Patient discharged in satisfactory condition. Vital Signs: Vital signs: Vital Signs Temperature 97.7 F 04/28/21 11:49 Pulse Rate 75 04/28/21 14:28 Respiratory Rate 16 04/28/21 14:28 Blood Pressure 155/87 04/28/21 14:28 Pulse Oximetry 97 04/28/21 14:28 MDM - Extremity (Nontraumatic) Medical Records: Attestation: I reviewed the patient's medical records. Lab Data: Attestation: I reviewed the patient's lab results. Discharge Plan Discharge Patient Disposition: Home Clinical Impression: Acute leg pain, Varicose veins of both lower extremities Condition: Stable Prescriptions: No Action Eliquis 5 mg tablet 5 mg PO BID@0900,2100 Qty: 60 RF: 4 levothyroxine 112 mcg tablet 112 mcg PO QAM Qty: 30 RF: 2 aspirin 81 mg Tablet,Delayed Release (Dr/Ec) 81 mg PO QAM RF: 0 Probiotic 1 tab PO DAILY RF: 0 Refresh Dry Eye Therapy 1 drp ophthalmic (eye) QID RF: 0 Vitamin B-12 1 tab sublingual DAILY RF: 0 Vitamin C 1 tab PO DAILY RF: 0 Vitamin D3 1 tab PO DAILY RF: 0 lysine 1 tab PO DAILY RF: 0 multivitamin Tablet 1 tab PO DAILY RF: 0 doxycycline hyclate 100 mg Capsule 100 mg PO BID RF: 0 Caltrate + D3 Plus Minerals 300 mg-800 unit -25 mg-0.5 mg Tablet 1 tab PO DAILY RF: 0 Elderberry 1 cap PO DAILY RF: 0 metoprolol tartrate 100 mg tablet 100 mg PO Q12H RF: 0 hydrochlorothiazide 25 mg tablet 25 mg PO QAM RF: 0 losartan 100 mg tablet 100 mg PO QAM RF: 0 diclofenac sodium 1 % gel 2 gm TOPICAL QID PRN (Reason: Pain) RF: 0 Discharge Orders: Discharge ED (Routine); Ordered 04/28/21 Ordered By: Wil Thomas Referrals: Ayesha Bhatia MD [Primary Care Provider] - Discharge Diet: Usual diet Discharge Activity: Resume usual activity Patient Instructions: Varicose Veins (ED) Activity Restrictions/Additional Instructions: Thank you for visiting the emergency department. You were seen and evaluated for leg pain. There was no evidence of deep vein thrombosis. You do have a thrombosed (blood clot) varicose vein. These do not require any specific treatment. For your discomfort you can take Tylenol and ibuprofen. Additionally heat, ice (not directly on skin), elevation, compression garments, or other [id number] treatments are okay to use as long as you have not been instructed to avoid them. Please return to the emergency department for anything that you are concerned about and feel needs emergency department evaluation. 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
--- NOTE | 2021-04-28 12:32 | USCV_ITS ---
Melinda Stapleton Age: 75 Gender: F : 1945 Exam Date: 04/28/2021 12:52 Ordering Phys: Wil Thomas MD Technologist: Rachel Powell Exam Location[place] [facility] [place]ication: bilateral leg pain, swelling PROCEDURES: The following venous structures were evaluated: common femoral vein, profunda vein, proximal portion of the greater saphenous vein, superficial femoral vein, and the popliteal vein. In addition, the posterior tibial veins were evaluated. FINDINGS: Normal 2-D Doppler and augmentation and compressibility throughout the lower extremity venous structures. Additional imaging through the proximal calf veins also reveals no thrombus. Limited evaluation of the greater saphenous vein is patent with no thrombus. Numerous varicose veins noted in both legs. Knot on outer right calf noted by patient appears to be a thrombosed varicose vein. CONCLUSIONS No DVT bilateral lower extremities. Thrombosed varicose vein right calf corresponds to palpable area. Dr. Cary Galeano DO (Electronically Signed) Final Date: 28 April 2021 13:44 S
[2021-04-28 14:08] VITALS: BP 155/87; PULSE 75; O2SAT 97
[2021-04-28 14:28] VITALS: BP 155/87; PULSE 75; RESP 16; O2SAT 97
== END 2021-04-28 14:29 | disposition home or self-care (01) ==
PROVIDERS: Emergency Provider Emergency Medicine; PCP Family Medicine
DX: I83.93 Asymptomatic varicose veins of bilateral lower extremities (principal); M79.604 Pain in right leg; Z79.01 Long term (current) use of anticoagulants; Z79.82 Long term (current) use of aspirin; Z86.19 Personal history of other infectious and parasitic diseases; E78.5 Hyperlipidemia, unspecified; I10 Essential (primary) hypertension
CPT/HCPCS: 93970; 99282

== ENCOUNTER → 2021-05-31 10:25 | Outpatient (BNVA) | payer MEDICARE, BC, SELFPAY | PROVIDERS: PCP Family Medicine; Visit Provider Family Medicine | DX: E78.2 Mixed hyperlipidemia (principal); E03.9 Hypothyroidism, unspecified; I10 Essential (primary) hypertension | CPT/HCPCS: 80053; 80061; 84403; 84443; 85025 ==

== ENCOUNTER 2021-07-03 06:00 | Outpatient (RCR) | payer MEDICARE, BC, SELFPAY | END 2021-07-07 23:59 | disposition home or self-care (01) | LOC: TPT 06:00 | PROVIDERS: PCP Family Medicine; Referring Provider Family Medicine; Visit Provider Family Medicine | DX: M25.512 Pain in left shoulder (principal); M54.2 Cervicalgia | CPT/HCPCS: 97110; 97163; 97530 ==

== ENCOUNTER → 2021-09-06 11:38 | Outpatient (BNVA) | payer MEDICARE, BC, SELFPAY | PROVIDERS: PCP Family Medicine; Visit Provider Nurse Practitioner Family | DX: J32.9 Chronic sinusitis, unspecified (principal); I10 Essential (primary) hypertension; E03.9 Hypothyroidism, unspecified; E55.9 Vitamin D deficiency, unspecified; E78.2 Mixed hyperlipidemia; Z20.822 Contact with and (suspected) exposure to COVID-19 | CPT/HCPCS: 80053; 80061; 82306; 84443; 85025; 87635 ==

== ENCOUNTER → 2021-11-24 10:35 | Outpatient (BNVA) | payer MEDICARE, BC, SELFPAY | PROVIDERS: PCP Family Medicine; Visit Provider Nurse Practitioner Family | DX: I48.91 Unspecified atrial fibrillation (principal); I10 Essential (primary) hypertension; I35.0 Nonrheumatic aortic (valve) stenosis; Z79.01 Long term (current) use of anticoagulants | CPT/HCPCS: 99214 ==

== ENCOUNTER → 2022-02-26 11:22 | Outpatient (BNVA) | payer MEDICARE, BC, SELFPAY | PROVIDERS: PCP Family Medicine; Visit Provider Nurse Practitioner Family | DX: M17.0 Bilateral primary osteoarthritis of knee (principal); M25.461 Effusion, right knee; R60.0 Localized edema | CPT/HCPCS: 73562 ==

== ENCOUNTER → 2022-03-06 10:41 | Outpatient (BNVA) | payer MEDICARE, BC, SELFPAY | PROVIDERS: PCP Family Medicine; Visit Provider Family Medicine | DX: E03.9 Hypothyroidism, unspecified (principal); E55.9 Vitamin D deficiency, unspecified; E78.2 Mixed hyperlipidemia; F32.9 Major depressive disorder, single episode, unspecified; I10 Essential (primary) hypertension; R35.0 Frequency of micturition | CPT/HCPCS: 80053; 80061; 81003; 82306; 84443; 85025 ==

== ENCOUNTER → 2022-03-19 10:37 | Outpatient (BNVA) | payer MEDICARE, BC, SELFPAY | PROVIDERS: PCP Family Medicine; Visit Provider Internal Medicine Cardiovascular Disease | DX: I10 Essential (primary) hypertension (principal); I35.0 Nonrheumatic aortic (valve) stenosis; I48.19 Other persistent atrial fibrillation; Z79.01 Long term (current) use of anticoagulants | CPT/HCPCS: 99214 ==

== ENCOUNTER 2022-04-25 10:53 | Emergency (ER) | payer MEDICARE, BC, SELFPAY ==
[2022-04-25 10:55] VITALS: BP 164/84; PULSE 85; RESP 18; TEMP 36.6; O2SAT 97; BMI 28.2
--- NOTE | 2022-04-25 11:04 | W.ED.GENADLT ---
HPI - General Adult General: Chief complaint: General Medical Stated complaint: Joint pain Time Seen by Provider: 04/25/22 10:55 History of Present Illness: Patient is a 76-year-old female with a history of rheumatoid arthritis and osteoarthritis presenting with complaints of diffuse pain all over. Patient has been 2 days ago, she was outside when she suddenly had onset of pain all over. Patient denies any muscle aches malaise, generalized weakness, chest pain or shortness of breath. Patient denies any diarrhea melena medic easier. Denies any complaints or abdominal pain. Onset:2 days ago Duration:2 days Location:home Severity:moderate Associated symptoms: Deny chest pain, dyspnea, nausea, rash, palpitations or vomiting Review of Systems Const: Denies: fever(s) or chills Eyes: Denies: change in vision ENMT: Denies: mouth pain Card: Denies: chest pain or palpitations Resp: Denies: dyspnea or non-productive cough GI: Denies: abdominal pain, nausea, vomiting or diarrhea : Denies: dysuria Musc: Reports: other (+joint pain all over); Denies: extremity pain Skin/Breast: Denies: rash or new lesions Neuro: Denies: weakness in extremities Psych: Reports: other (Normal mood) [place]/Lymph: Denies: easy bruising PFSH ED PFSH: Medical History Aortic stenosis Arthritis Atrial fibrillation Benign skin lesion of face Depression Graves disease Status post iodine treatment Hair loss Hiatal hernia High blood pressure History of hepatitis C Hyperlipidemia Hypertension Hypothyroidism Left sciatic nerve pain Low back pain with sciatica Shingles outbreak Stroke Surgical History H/O: hysterectomy History of lung surgery After aspiration from hiatal hernia wedge resection History of thyroid surgery Family History Other CAD (coronary artery disease) Diabetes Hypertension Stroke Social History Smoking and tobacco status: never smoked Second hand smoke exposure: No Alcohol intake: never Lives independently: No Household members: children Marital status: / service: No Current occupational status: retired History of recent travel: No Current gender identity: Female Physical Exam Const: COMMON NORMALS: alert HENMT: COMMON NORMALS: atraumatic HEAD & SCALP: atraumatic MOUTH: moist mucous membranes not abnormal Eye: COMMON NORMALS: EOMs intact bilaterally and conjunctivae normal CONJUNCTIVA: Yes conjunctivae normal Neck/C-Spine: COMMON NORMALS: full ROM and supple Resp: COMMON NORMALS: normal respiratory effort and clear to auscultation bilaterally AUSCULTATION: clear to auscultation bilaterally Cardio: COMMON NORMALS: regular rate RATE: regular rate GI: COMMON NORMALS: Soft to palpation and non-tender PALPATION: Yes Soft to palpation OTHER: No focal TTP. NO guarding rebound, guarding, rigidity. No CVA tenderness to percussion. Neg Van/Neg McBurney's point tenderness, no suprabupic tenderness to palpation. Extremity: COMMON NORMALS: full ROM NARRATIVE EXTREMITY EXAM: full ROM of all joints No focal joint swelling/erythema/warmth or tenderness to palpation Neuro: SENSORIUM/ORIENTATION: Yes alert MOTOR EXAM: No Abnormal motor strength present and Other motor observations present (no focal motor deficits) Psych: COMMON NORMALS: speech normal SPEECH: Yes normal speech MOOD & AFFECT: Yes euthymic mood Course Vital Signs: Vital signs: Vital Signs Temperature 98.6 F 04/25/22 14:51 Pulse Rate 89 04/25/22 14:51 Respiratory Rate 17 04/25/22 14:51 Blood Pressure 163/75 04/25/22 14:51 Pulse Oximetry 99 04/25/22 14:51 Oxygen Delivery Me thod 04/25/22 14:49 [facility] - General Adult Medical Decision Making Patient is a 76-year-old female with a history of rheumatoid arthritis and osteoarthritis presenting with complaints of diffuse pain all over. Suspect symptoms are likely rheumatoid arthritis is osteoarthritis. Work-up today has been unremarkable today. Patient received pain medicine reports feeling symptomatically improved. Troponin x 2 with delta less than 5. Rx: Percocet, lidocaine patch, and menthol PRN pain Disposition: Discharge. Patient counseled regarding diagnostic impression, treatment plan. Patient given ED strict return precautions to return for continuation, worsening, or development of new symptoms. Instructed to f/u w/ PCP regarding symptoms today. Patient verbalized understanding. Lab Data : 04/25/22 11:13 04/25/22 12:10 Laboratory Results WBC 12.8 10^3/uL (4.0-10.0) H 04/25/22 11:13 RBC 4.92 10^6/uL (4.1-5.3) 04/25/22 11:13 Hgb 14.5 g/dL (11.5-15.3) 04/25/22 11:13 Hct 43.9 % (37.0-47.0) 04/25/22 11:13 MCV 89.2 fl (81-99) 04/25/22 11:13 MCH 29.5 pg (28.0-34.0) 04/25/22 11:13 MCHC 33.0 g/dL (30.0-36.0) 04/25/22 11:13 RDW 15.0 % (12.1-15.1) 04/25/22 11:13 Plt Count 147 10^3/cmm (130-400) 04/25/22 11:13 MPV 9.9 fL (7.4-10.4) 04/25/22 11:13 Neut % (Auto) 80.6 % 04/25/22 11:13 Lymph % (Auto) 8.2 % 04/25/22 11:13 [place] % (Auto) 10.0 % 04/25/22 11:13 Eos % (Auto) 0.3 % 04/25/22 11:13 Baso % (Auto) 0.3 % 04/25/22 11:13 Neut # (Auto) 10.30 10^3/uL (1.8-7.7) H 04/25/22 11:13 Lymph # (Auto) 1.1 10^3/uL (0.8-4.8) 04/25/22 11:13 [place] # (Auto) 1.3 10^3/uL (0.2-0.9) H 04/25/22 11:13 Eos # (Auto) 0.0 10^3/uL (0.0-0.8) 04/25/22 11:13 Baso # (Auto) 0.0 10^3/uL (0.0-0.1) 04/25/22 11:13 Nucleated RBC % (auto) 0 % 04/25/22 11:13 Nucleated RBCs # 0.0 /100WBC 04/25/22 11:13 Sodium 131 mmol/L (136-145) L 04/25/22 12:10 Potassium 3.2 mmol/L (3.5-5.1) L 04/25/22 12:10 Chloride 92 mmol/L (98-107) L 04/25/22 12:10 Carbon Dioxide 27 mmol/L (22-29) 04/25/22 12:10 Anion Gap 15.2 (5-19) 04/25/22 12:10 BUN 16 mg/dL (8-23) 04/25/22 12:10 Creatinine 0.7 mg/dL (0.5-0.9) 04/25/22 12:10 GFR Calculation Not Reportable 04/25/22 12:10 Glucose 114 mg/dL (65-115) 04/25/22 12:10 Calculated Osmolality 274 mOsm/kg (285-295) L 04/25/22 12:10 Calcium 9.5 mg/dL (8.5-10.5) 04/25/22 12:10 Troponin T Baseline 10 ng/L (0-10) 04/25/22 11:13 Troponin T 120 Minute 12.24 ng/L (0-10) H 04/25/22 12:56 Delta Troponin T 2.24 ABS# (0-10) 04/25/22 12:56 Discharge Plan Discharge Patient Disposition: Home Clinical Impression: Joint pain Condition: Stable Prescriptions: New lidocaine 5 % adhesive patch,medicated 1 patch topical DAILY PRN (Reason: pain) 30 Days Qty: 30 0RF Rx Instructions: leave on most painful area for up to 12 hrs aloe vera Gel 1 applic topical DAILY PRN (Reason: pain) 10 Days Qty: 170 0RF Biofreeze (menthol) 5 % gel 1 ea topical BID PRN (Reason: pain) 10 Days Qty: 1 0RF Percocet 5-325 mg tablet 1 tab PO Q8H PRN (Reason: pain) Qty: 5 0RF Percocet 5-325 mg tablet 1 tab PO Q8H PRN (Reason: pain) Qty: 9 0RF Discontinued acetaminophen-codeine 300-60 mg tablet 1 tab PO Q8H PRN (Reason: pain) Qty: 30 0RF No Action aspirin 81 mg tablet,delayed release (DR/EC) 81 mg PO DAILY cetirizine [Zyrtec] 10 mg tablet 10 mg PO DAILY PRN (Reason: allergy symptoms) Qty: 30 2RF fluticasone propionate [Flonase Allergy Relief] 50 mcg/actuation spray,suspension 2 spray intranasal DAILY Qty: 16 2RF Rx Instructions: administer into each nostril cholecalciferol (vitamin D3) 125 mcg (5,000 unit) capsule 125 mcg PO DAILY Qty: 30 4RF diclofenac sodium 1 % gel 2 g TOPICAL QID PRN (Reason: arthritis) Qty: 100 3RF Rx Instructions: apply to affected area losartan 100 mg tablet 100 mg PO QAM Qty: 90 2RF methylprednisolone [Medrol (Abebe)] 4 mg tablets,dose pack See Rx Instructions PO PER PKG DIR Qty: 21 0RF Rx Instructions: PO PER PKG DIR acetaminophen [Tylenol Arthritis Pain] 650 mg tablet extended release See Rx Instructions PO Q8H PRN (Reason: pain) Qty: 180 1RF Rx Instructions: 1-2 tabs PO every 8 hours PRN; cyclobenzaprine 5 mg tablet 5 mg PO TID PRN (Reason: muscle spasm) 30 Days Qty: 90 1RF levothyroxine 125 mcg capsule 125 mcg PO DAILY Qty: 90 1RF nitrofurantoin monohyd/m-cryst [Macrobid] 100 mg capsule 100 mg PO BID Qty: 20 0RF Rx Instructions: must administer with a meal/food metoprolol tartrate 100 mg tablet 100 mg PO BID Qty: 180 3RF Rx Instructions: @09:00,21:00 potassium chloride 10 mEq tablet extended release See Rx Instructions .ROUTE .COMPLEX Qty: 90 1RF Dose Instruction: TAKE ONE TABLET BY MOUTH EVERY DAY Rx Instructions: TAKE ONE TABLET BY MOUTH EVERY DAY hydrochlorothiazide 25 mg tablet See Rx Instructions .ROUTE .COMPLEX Qty: 180 1RF Dose Instruction: TAKE TWO TABLETS BY MOUTH EVERY MORNING Rx Instructions: TAKE TWO TABLETS BY MOUTH EVERY MORNING Xarelto 20 mg tablet 20 mg PO DAILY Qty: 90 0RF Rx Instructions: must administer with evening meal Probiotic 1 tab PO DAILY Refresh Dry Eye Therapy 1 drp ophthalmic (eye) QID Vitamin B-12 1 tab sublingual DAILY Vitamin C 1 tab PO DAILY Vitamin D3 1 tab PO DAILY lysine 1 tab PO DAILY multivitamin Tablet 1 tab PO DAILY Caltrate + D3 Plus Minerals 300 mg-800 unit -25 mg-0.5 mg Tablet 1 tab PO DAILY Elderberry 1 cap PO DAILY Discharge Orders: Discharge ED (Routine); Ordered 04/25/22 Ordered By: Cindy Hawkins Referrals: Ayesha Bhatia MD [Primary Care Provider] - Discharge Diet: Advance as tolerated Discharge Activity: Increase activity as tolerated Patient Instructions: Opioid Safety, Pain Management Activity Restrictions/Additional Instructions: Come back if you have any new or concerning issues. Our case management specialist will have you follow-up with our Orthopedics provider in the next few days. You would be expected to have a phone call with our case management specialist who will put you on the schedule. You can expect a call from us in the next 2-3 days. If you don't hear from us, call us back in the emergency room at [phone]. 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
--- NOTE | 2022-04-25 11:09 | PC.NURSE ---
Patient here with c/o joint pain, all over, lives alone, noticed the pain 2 days ago but not able to make a fist with either hand. Patient a/o
[2022-04-25 11:21] VITALS: BP 170/98; PULSE 96; RESP 20; TEMP 37; O2SAT 95
[2022-04-25 11:23] LABS: Basophils % 0.3 %; Eosinophils % 0.3 %; Hematocrit 43.9 % (37.0-47.0); Hemoglobin 14.5 g/dL (11.5-15.3); Lymphocytes # 1.1 10^3/uL (0.8-4.8); Lymphocytes % 8.2 %; Mean Corpuscular Hemoglobin 29.5 pg (28.0-34.0); Mean Corpuscular Volume 89.2 fl (81-99); Mean Platelet Volume 9.9 fL (7.4-10.4); Monocytes # 1.3 10^3/uL (0.2-0.9); Neutrophils % 80.6 %; Nucleated Red Blood Cells % 0 %; Platelet Count 147 10^3/cmm (130-400); Red Blood Count 4.92 10^6/uL (4.1-5.3); White Blood Count 12.8 10^3/uL (4.0-10.0)
[2022-04-25 11:50] LABS: Troponin(5th) Baseline 10 ng/L (0-10)
[2022-04-25 12:34] LABS: Anion Gap 15.2 (5-19); Blood Urea Nitrogen 16 mg/dL (8-23); Calcium 9.5 mg/dL (8.5-10.5); Carbon Dioxide 27 mmol/L (22-29); Chloride 92 mmol/L (98-107); Glucose 114 mg/dL (65-115); Osmolality Calculated 274 mOsm/kg (285-295); Potassium 3.2 mmol/L (3.5-5.1); Sodium 131 mmol/L (136-145)
--- NOTE | 2022-04-25 12:37 | ECG_ITS ---
[facility] Test Date: 2022-04-25 Pat Name: Melinda Stapleton Department: Room: Gender: Female [employer] Director: : 1945 Requested By: Cindy Hawkins Order Number: [id number] Robert MD: Tevin Joyner M.D. Measurements Intervals [place] Rate: 87 P: [place]: QRS: 0 QRSD: 98 T: 15 QT: 377 QTc: 454 Interpretive Statements ATRIAL FIBRILLATION SEPTAL MYOCARDIAL INFARCTION , PROBABLY OLD [40+ ms Q WAVE IN V1/V2] Compared to ECG 11/14/2020 20:32:44 Myocardial infarct finding now present ST (T wave) deviation no longer present Electronically Signed On 04-26-2022 10:36:03 CDT by Tevin Joyner M.D. [id number]
[2022-04-25 13:04] VITALS: BP 170/98; PULSE 89; RESP 18; O2SAT 94
[2022-04-25 13:48] LABS: Troponin 5 2HR 12.24 ng/L (0-10)
[2022-04-25 13:49] LABS: Troponin 5 2HR Delta 2.24 ABS# (0-10)
[2022-04-25 14:49] VITALS: BP 163/75; PULSE 89; RESP 17; TEMP 37; O2SAT 99
[2022-04-25 14:51] VITALS: BP 163/75; PULSE 89; RESP 17; TEMP 37; O2SAT 99
--- NOTE | 2022-04-26 11:23 | DCPLANNER ---
Addendum entered by Estela Cool 05/01/22 08:36: manager of global had the following message from the ortho clinic front staff regarding follow up appointment: No vm needs to call back and schedule. manager of global called phone number [phone] just got a busy signal called phone number [phone] just got a busy signal called phone number [phone] left a voicemail on 04.27.22 and 05.01.22 for patient to return housing case manager phone call. Original Note: manager of global had message to schedule a follow up appointment for patient with ortho. manager of global sent patients information to the front office staff at ortho. Patients information will be printed and reviewed. Clinic will call patient with appointment information.
== END 2022-04-25 15:24 | disposition home or self-care (01) ==
PROVIDERS: Emergency Provider Emergency Medicine; PCP Family Medicine
DX: M25.50 Pain in unspecified joint (principal); M06.9 Rheumatoid arthritis, unspecified; M19.91 Primary osteoarthritis, unspecified site; I10 Essential (primary) hypertension; E78.5 Hyperlipidemia, unspecified; E03.9 Hypothyroidism, unspecified; Z79.82 Long term (current) use of aspirin; Z79.01 Long term (current) use of anticoagulants; Z86.73 Personal history of transient ischemic attack (TIA), and cerebral infarction without residual deficits
CPT/HCPCS: 36415; 80048; 84484; 85025; 87635; 93005; 99284

== ENCOUNTER → 2022-04-26 13:48 | Outpatient (BNVA) | payer MEDICARE, BC, SELFPAY | PROVIDERS: PCP Family Medicine; Visit Provider Family Medicine | DX: M25.50 Pain in unspecified joint (principal); E03.9 Hypothyroidism, unspecified; E03.8 Other specified hypothyroidism; R29.6 Repeated falls | CPT/HCPCS: 80053; 84443; 84550; 85651; 86038; 86140; 86200; 86431 ==

== ENCOUNTER → 2022-05-08 10:25 | Outpatient (BNVA) | payer MEDICARE, BC, SELFPAY | PROVIDERS: PCP Family Medicine; Visit Provider Internal Medicine Rheumatology | DX: M05.79 Rheumatoid arthritis with rheumatoid factor of multiple sites without organ or systems involvement (principal); Z79.899 Other long term (current) drug therapy; M19.041 Primary osteoarthritis, right hand; M19.042 Primary osteoarthritis, left hand; Z71.85 Encounter for immunization safety counseling; Z11.59 Encounter for screening for other viral diseases; Z11.1 Encounter for screening for respiratory tuberculosis; Z90.2 Acquired absence of lung [part of]; Z79.891 Long term (current) use of opiate analgesic | CPT/HCPCS: 71046; 73130; 73630; 99204 ==

== ENCOUNTER → 2022-06-11 12:09 | Outpatient (BNVA) | payer MEDICARE, BC, SELFPAY | PROVIDERS: PCP Family Medicine; Visit Provider Internal Medicine Rheumatology | DX: Z11.59 Encounter for screening for other viral diseases (principal); Z79.899 Other long term (current) drug therapy; M06.9 Rheumatoid arthritis, unspecified; E78.2 Mixed hyperlipidemia; E03.8 Other specified hypothyroidism; R76.8 Other specified abnormal immunological findings in serum | CPT/HCPCS: 80061; 80076; 82565; 84443; 85025; 85651; 86140; 86160; 86162; 86235; 86255; 86376; 86480; 86704; 86803; 87340 ==

== ENCOUNTER → 2022-06-12 02:31 | Outpatient (BNVA) | payer MEDICARE, BC, SELFPAY | PROVIDERS: PCP Family Medicine; Visit Provider Internal Medicine Rheumatology | DX: Z76.89 Persons encountering health services in other specified circumstances (principal); Z11.59 Encounter for screening for other viral diseases; E03.8 Other specified hypothyroidism; E78.2 Mixed hyperlipidemia; M05.79 Rheumatoid arthritis with rheumatoid factor of multiple sites without organ or systems involvement; R76.8 Other specified abnormal immunological findings in serum; Z79.899 Other long term (current) drug therapy | CPT/HCPCS: 87522 ==

== ENCOUNTER → 2022-06-26 14:07 | Outpatient (BNVA) | payer MEDICARE, BC, SELFPAY | PROVIDERS: PCP Family Medicine; Visit Provider Internal Medicine Rheumatology | DX: M05.79 Rheumatoid arthritis with rheumatoid factor of multiple sites without organ or systems involvement (principal); Z79.899 Other long term (current) drug therapy; R79.89 Other specified abnormal findings of blood chemistry; M19.041 Primary osteoarthritis, right hand; M19.042 Primary osteoarthritis, left hand; Z71.85 Encounter for immunization safety counseling; Z90.2 Acquired absence of lung [part of] | CPT/HCPCS: 36415; 81001; 82565; 84520; 99204; 99214 ==

== ENCOUNTER 2022-07-06 01:00 | Outpatient (CLI) | payer MEDICARE, BC, SELFPAY | END 2022-07-06 23:00 | disposition home or self-care (01) | LOC: RAD 08-13 15:06 | PROVIDERS: PCP Family Medicine; Visit Provider Internal Medicine Rheumatology | DX: Z79.899 Other long term (current) drug therapy (principal); R79.89 Other specified abnormal findings of blood chemistry; G89.29 Other chronic pain; M05.79 Rheumatoid arthritis with rheumatoid factor of multiple sites without organ or systems involvement; M54.9 Dorsalgia, unspecified | CPT/HCPCS: 36415; 81001; 82565; 84520; 99204 ==

== ENCOUNTER 2022-07-06 13:56 | Outpatient (CLI) | payer MEDICARE, BC, SELFPAY ==
--- NOTE | 2022-07-06 14:30 | CT_ITS ---
WS: [id number] CT LUMBAR SPINE, noncontrast. HISTORY: M05.79 - Rheumatoid arthritis with rheumatoid factor TECHNIQUE: Contiguous 3.0 mm axial imaging are performed. Sagittal and coronal reformats are submitte d and reviewed. All CT scans at [facility] use at least one of these dose optimization techni ques: automated exposure control; mA and/or kV adjustment per patient size (includes targeted exams w here dose is matched to clinical indication); or iterative reconstruction. IV contrast: None DLP: 1940.10 mGy.cm COMPARISON: Lumbar spine radiograph 2009. Increase in the lumbar lordosis. Chronic biconcave compression fracture at T12. 2.8 mm retropulsion o f posterior inferior endplate of T12. L4 anterolisthesis by 3 mm. No acute fractures. L1-2: Mild facet joint arthritis. No stenosis. L2-3: Moderate annular disc bulging encroaching upon the ventral thecal sac and subarticular recesses . Osteophytic ridging and facet arthritis. Mild central, bilateral subarticular recess and foraminal stenosis. L3-4: Diffuse annular disc bulging encroaching upon the ventral thecal sac. Moderate ligamentum flavu m and facet arthritis. Severe central with bilateral subarticular recess and foraminal stenosis. L4-5: Diffuse annular disc bulging encroaching upon the thecal sac and subarticular recesses. Severe facet joint arthritis encroaching into the central canal and foraminal stenosis. Severe central, bila teral subarticular recess and moderate foraminal stenosis. L5-S1: Mild disc bulging encroaching upon the ventral thecal sac. Mild central, bilateral subarticula r recess and foraminal stenosis. Moderate facet joint arthritis. Atherosclerosis aorta. Heavy calcification in the splenic artery. Prior cholecystectomy. No SI joint fusion or erosions identified. CT/CT lumbar spine wo con* [id number] IMPRESSION: 1. Multilevel facet joint arthritis and areas of stenoses. 2. Severe central with bilateral subarticular recess and foraminal stenosis at L3-4. 3. Severe central, bilateral subarticular recess and moderate foraminal stenos is at L4-5. 4. Mild central, bilateral subarticular recess and foraminal stenosis at L2-3 and L5-S1. 5. Remote biconcave shaped T12 compression fracture.
--- NOTE | 2022-07-06 15:00 | CT_ITS ---
WS: [id number] CT THORACIC SPINE HISTORY: M05.79 - Rheumatoid arthritis with rheumatoid factor TECHNIQUE: Contiguous 2.5 mm axial images are reviewed to thoracic spine. Images are reformatted in s agittal and coronal planes. All CT scans at [facility] use at least one of these dose optimiz ation techniques: automated exposure control; mA and/or kV adjustment per patient size (includes targ eted exams where dose is matched to clinical indication); or iterative reconstruction. DLP: 1940.10 mGy.cm COMPARISON: None available. Mild RIGHT curvature thoracic spine and increased kyphosis. Diffuse osteopenia. Very slight anterior wedging of T6. Chronic T12 biconcave fracture with minimal retropulsion of posterior inferior endplat e. Disc spacers are narrowed throughout. Large bridging osteophytes of the thoracic spine along the R IGHT lateral vertebral bodies. No severe central or foraminal stenosis. Mild facet joint arthritis throughout the thoracic spine. Small hiatal hernia. Heavy calcification in the suprarenal aorta. CT/CT thoracic spin wo con* [id number] IMPRESSION: 1. Chronic, remote appearing compression fractures involving T6 and T12. 2. No high-grade central or foraminal stenosis. 3. Mild increase in thoracic kyphosis and RIGHT scoliosis.
== END 2022-07-06 13:57 | disposition home or self-care (01) ==
PROVIDERS: PCP Family Medicine; Visit Provider Internal Medicine Rheumatology
DX: M05.79 Rheumatoid arthritis with rheumatoid factor of multiple sites without organ or systems involvement (principal); G89.29 Other chronic pain; M41.84 Other forms of scoliosis, thoracic region; S22.059A Unspecified fracture of T5-T6 vertebra, initial encounter for closed fracture; S22.089A Unspecified fracture of T11-T12 vertebra, initial encounter for closed fracture; X58.XXXA Exposure to other specified factors, initial encounter; M48.061 Spinal stenosis, lumbar region without neurogenic claudication; M48.07 Spinal stenosis, lumbosacral region
CPT/HCPCS: 72128; 72131

== ENCOUNTER → 2022-07-26 13:48 | Outpatient (BNVA) | payer MEDICARE, BC, SELFPAY | PROVIDERS: PCP Family Medicine; Referring Provider Internal Medicine Rheumatology; Visit Provider Orthopaedic Surgery | DX: M48.54XA Collapsed vertebra, not elsewhere classified, thoracic region, initial encounter for fracture (principal); M85.88 Other specified disorders of bone density and structure, other site; M47.814 Spondylosis without myelopathy or radiculopathy, thoracic region | CPT/HCPCS: 72072; 99204 ==

== ENCOUNTER → 2022-08-21 15:06 | Outpatient (BNVA) | payer MEDICARE, BC, SELFPAY | PROVIDERS: PCP Family Medicine; Visit Provider Physician Assistant | DX: S22.080A Wedge compression fracture of T11-T12 vertebra, initial encounter for closed fracture (principal); Z87.81 Personal history of (healed) traumatic fracture; Z09 Encounter for follow-up examination after completed treatment for conditions other than malignant neoplasm; X58.XXXA Exposure to other specified factors, initial encounter | CPT/HCPCS: 72080; 99213 ==

== ENCOUNTER → 2022-09-18 15:04 | Outpatient (BNVA) | payer MEDICARE, BC, SELFPAY | PROVIDERS: PCP Family Medicine; Visit Provider Family Medicine | DX: I10 Essential (primary) hypertension (principal); E03.9 Hypothyroidism, unspecified; E78.2 Mixed hyperlipidemia; E55.9 Vitamin D deficiency, unspecified | CPT/HCPCS: 80053; 80061; 82306; 84443; 85025 ==

== ENCOUNTER 2022-10-01 12:07 | Outpatient (CLI) | payer MEDICARE, BC, SELFPAY ==
--- NOTE | 2022-10-01 13:00 | XR_ITS ---
WS: [id number] DEXA (DUAL ENERGY X-RAY ABSORPTIOMETRY) Bone mineral density was performed using a Jibe machine. HISTORY: S22.000A - Wedge compression fracture of unspecified thor... COMPARISON: None available. Lumbar spine BMD (L1-L4): 1.371 g/cm2 T score: 1.6 Z score: 3.2 Total hip BMD: Left: 0.863 g/cm2. T score: -1.1 Z score: 0.6 Right: 0.905 g/cm2. T score: -0.8 Z score: 1.0 10 year probability of a major osteoporotic fracture is 25.2%. XR/XR DEXA axial skeleton* [id number] IMPRESSION: OSTEOPENIA based upon the WHO classification for females.
== END 2022-10-01 12:08 | disposition home or self-care (01) ==
LOC: RAD 12:08
PROVIDERS: PCP Family Medicine; Visit Provider Family Medicine
DX: S22.000A Wedge compression fracture of unspecified thoracic vertebra, initial encounter for closed fracture (principal); X58.XXXA Exposure to other specified factors, initial encounter; M85.80 Other specified disorders of bone density and structure, unspecified site
CPT/HCPCS: 77080

== ENCOUNTER 2022-10-03 14:09 | Outpatient (CLI) | payer MEDICARE, BC, SELFPAY ==
--- NOTE | 2022-10-03 15:15 | MR_ITS ---
WS: [id number] MRI THORACIC SPINE noncontrast. HISTORY: thoracic back pain COMPARISON: 03/18/2009 and 08/21/2022. TECHNIQUE: Multiplanar sequences are performed in sagittal and axial planes. Increase in thoracic kyphosis. Mild anterior wedging of T6. Remote complex fracture T12. Vertical com ponent with anterior wedging and no retropulsion. Stable since 2008. No marrow edema or acute fractur es. T1-2: Normal. T2-3: Normal. T3-4: Normal. T4-5: Tiny central disc protrusion. T5-6: Normal. T6-7: Normal. T7-8: Normal. T8-9: Normal. T9-10: Normal. T10-11: Mild bilateral facet arthritis. T11-12: Mild facet arthritis. T12-L1: Annular disc bulging with mild encroachment upon the ventral thecal sac. Mild central and marlee ateral foraminal stenosis. MR/MR thoracic spin wo con* [id number] IMPRESSION: 1. Remote, chronic T12 fracture. No acute marrow edema or acute fractures iden tified in the thoracic spine. 2. Mild central and bilateral foraminal stenosis at T12-L1. 3. Minimal chronic anterior wedging T6.
== END 2022-10-03 14:10 | disposition home or self-care (01) ==
LOC: RAD 14:11
PROVIDERS: PCP Family Medicine; Visit Provider Physician Assistant
DX: S22.089A Unspecified fracture of T11-T12 vertebra, initial encounter for closed fracture (principal); X58.XXXA Exposure to other specified factors, initial encounter; M48.05 Spinal stenosis, thoracolumbar region
CPT/HCPCS: 72146

== ENCOUNTER → 2022-10-08 14:10 | Outpatient (BNVA) | payer MEDICARE, BC, SELFPAY | PROVIDERS: PCP Family Medicine; Visit Provider Internal Medicine Rheumatology | DX: M05.79 Rheumatoid arthritis with rheumatoid factor of multiple sites without organ or systems involvement (principal); Z79.899 Other long term (current) drug therapy; M19.041 Primary osteoarthritis, right hand; M19.042 Primary osteoarthritis, left hand; Z71.85 Encounter for immunization safety counseling | CPT/HCPCS: 99214 ==

== ENCOUNTER → 2022-10-11 15:27 | Outpatient (BNVA) | payer MEDICARE, BC, SELFPAY | PROVIDERS: PCP Family Medicine; Visit Provider Orthopaedic Surgery | DX: M54.6 Pain in thoracic spine (principal) | CPT/HCPCS: 99214 ==

== ENCOUNTER → 2023-05-27 12:11 | Outpatient (BNVA) | payer MEDICARE, BC, SELFPAY | PROVIDERS: PCP Family Medicine; Visit Provider Internal Medicine Rheumatology | DX: M05.79 Rheumatoid arthritis with rheumatoid factor of multiple sites without organ or systems involvement (principal); M19.041 Primary osteoarthritis, right hand; M19.042 Primary osteoarthritis, left hand; Z79.899 Other long term (current) drug therapy; Z71.85 Encounter for immunization safety counseling | CPT/HCPCS: 99214 ==

== ENCOUNTER 2023-06-13 14:23 | Oncology outpatient (recurring) (ONCR) | payer MEDICARE, BC, SELFPAY ==
--- OUTSIDE RECORDS SUMMARY | 2023-06-12 13:50 | XMS_ITS | Patient Health Record ---
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 Role Phone Pepe Pang MD Primary Care Provider Kari Wyatt Unavailable [phone] Riley Ley Unavailable [phone] ALLERGIES Allergen (clinical drug ingredient) Drug/Non Drug Allergy documented on EMR Reaction Allergy Type Onset Date Status diazepam Diazepam , Drug Allergy Active Valium (diazePAM) Unknown Drug Allergy Active codeine codeine Unknown Drug Allergy Active RESULTS Component Value Reference Range Notes Lumbosacral Spine AP/Lat-721 00 (Not yet reviewed by provider) Interpretation: Performing Lab: Notes/Report: [id number] Lumbosacral Spine AP/Lat-721 00 (Not yet reviewed by provider) Interpretation: Performing Lab: Notes/Report: See Below For Report Lumbosacral Spine AP/Lat Diagnosis Description: Radiculopathy, lumbar region Lumbosacral Spine AP/Lat-721 00 Reviewed date:04/08/2023 10:45:31 AM Interpretation: Performing Lab: Notes/Report: [id number] Thoracic Spine AP/Lat-08410 Reviewed date:04/08/2023 10:45:26 AM Interpretation: Performing Lab: Notes/Report: [id number] Thoracic Spine AP/Lat-05051 Reviewed date:04/08/2023 10:45:40 AM Interpretation: Performing Lab: Notes/Report: See Below For Report Thoracic Spine AP/Lat Lumbosacral Spine AP/Lat-721 00 Reviewed date:04/08/2023 10:45:44 AM Interpretation: Performing Lab: Notes/Report: See Below For Report Lumbosacral Spine AP/Lat Lumbosacral Spine AP/Lat-721 00 Reviewed date:05/31/2023 11:01:39 AM Interpretation: Performing Lab: Notes/Report: [id number] Lumbosacral Spine AP/Lat-721 00 Reviewed date:05/31/2023 11:01:33 AM Interpretation: Performing Lab: Notes/Report: See Below For Report Lumbosacral Spine AP/Lat Diagnosis Description: Radiculopathy, lumbar region REASON FOR REFERRAL Reason TLSO back brace Diagnosis 1 Closed fracture of t welfth thoracic vertebra, unspecified fracture morphology, initial encounter (S22.593M) Diagnosis 2 Osteoporosis, unspec ified osteoporosis type, unspecified pathological fracture presence (M81.0) Referral Organization [facility] Referring Provider First Name Riley Referring Provider Last Name Jil Referring Provider Speciality Neurologic al Surgery Referred Provider Specialty DME Referral Priority Routine Reason [facility] close to [facility] for eval and treat, thanks Diagnosis 1 Lumbar radiculopathy (M54.16) Referral Organization [facility] Referring Provider First Name Kari Referring Provider Last Name Mahamed Referring Provider Speciality Nurse Prac parmjitionesimon Referral Priority Routine MEDICATIONS Medication SIG (Take, Route, Frequency, Duration) Notes Start Date End Date Status Hydrochlorothiazide 25 MG Oral Tablet Hydrochlorothiazide 25 MG Oral Tablet 01/28/20 18 Active Lysine Lysine 06/02/20 19 Not-Taking Losartan Potassium 100 MG Oral Tablet Losartan Potassium 100 MG Oral Tablet 01/28/20 18 Not-Taking Amiodarone HCl 200 MG TAKE 2 TABLETS BY MOUTH TWICE DAILY FOR 10 DAYS THEN DECREASE TO 1 TABLET DAILY THEREAFTER Oral for 30 Days Active Amlodipine Amlodipine 05/27/20 19 Not-Taking Losartan Losartan 05/27/20 19 Not-Taking Aspirin Active Thyroxine Thyroxine 05/27/20 19 Not-Taking Vitamin D3 Active Amlodipine 5 MG Oral Tablet Amlodipine 5 MG Oral Tablet 01/28/20 18 Not-Taking Valsartan Active amLODIPine Besylate 5 MG 1 tablet Orally Once a day Unknown Cetirizine HCl Activ e hydroCHLOROthiazide 25 MG 1 tablet in the morning Orally Once a day Unknown Potassium Chloride ER Active Levothyroxine Sodium 100 MCG 1 tablet in the morning on an empty stomach Orally Once a day Unknown Ondansetron Active Losartan Potassium 100 MG 1 tablet Orally Once a day Unknown predniSONE Active Cyclobenzaprine HCl Active Biotin Active Multivitamin - 1 tablet Orally Once a day Active Colchicine Active Leflunomide Active Metoprolol Tartrate Active Xarelto Active traMADol HCl Active HYDROcodone-Acetaminoph en Active Levothyroxine Sodium 0.1 MG Oral Tablet Levothyroxine Sodium 0.1 MG Oral Tablet 01/28/20 18 Active IMMUNIZATIONS Vaccine Route Administration Date Status Comme nts Influenza (whole), CPT 26955 Inactive Unknown 06/06/2017 Administered Influenza (whole), CPT 52922 Inactive Unknown 06/02/2019 Administered SOCIAL HISTORY Sex Assigned At : Social History Observation Description Sex Assigned At Unknown PROBLEMS Problem Type ICD Code Onset Dates Problem Status W/U Status Risk SNOMED Code Notes Problem Hypothyroidism , unspecified (E03.9) Active confirmed Hypothyroidism (63102869) Problem Chest pain, unspecified (R07.9) Active confirmed Chest pain (61952399) [id number] omed Description:Ch est pain Problem Osteoporosis, unspecified osteoporosis type, unspecified pathological fracture presence (M81.0) Active confirmed 55759017 Problem Nonrheumatic aortic valve stenosis (I35.0) Active confirmed Aortic stenosis , non-rheumatic (791074481) Problem Essential primary hypertension (I10) Active confirmed Essential hypertension (08270265) [id number] omed Description:Es sential hypertension VITAL SIGNS Heart Rate 78 /min 05/30/2023 Temperature 98.3 degrees Fahrenheit 04/01/2023 Respiratory Rate 16 /min 05/30/2023 Oximetry 96 % 05/30/2023 Blood pressure diastolic 70 mm Hg 05/30/2023 Weight-kg 60.78 kg 05/30/2023 Height 66 in 05/30/2023 Blood pressure systolic 164 mm Hg 05/30/2023 Weight 134 lbs 05/30/2023 BMI 21.63 kg/m2 05/30/2023 Encounters Encounter Location Date Provider Diagnosis [facility] [address] [place] [address] 01/28/2023 Riley [facility] [address] [place] [address] 05/30/2023 Kari Irby Lumbar radiculopathy M54.16 [facility] [address] [place] [address] 05/30/2023 Kari Irby Lumbar radiculopathy M54.16 and Closed stable burst fracture of twelfth thoracic vertebra, initial encounter S22.081A [facility] [address] [place] [address] 02/14/2023 Kari Irby [facility] [address] [place] [address] 02/14/2023 Riley [facility] [address] [place] [address] 03/04/2023 Kari Irby Lumbar radiculopathy M54.16 [facility] [address] [place] [address] 04/01/2023 Kari Irby Lumbar radiculopathy M54.16 and Closed stable burst fracture of twelfth thoracic vertebra, initial encounter S22.081A [facility] [address] [place] [address] 01/17/2023 Riley Ley Lumbar radiculopathy M54.16 and Closed stable burst fracture of twelfth thoracic vertebra, initial encounter S22.081A ASSESSMENTS Encounter Date Diagnosis Assessment Notes Treatment Notes Treatment Clinical Notes 01/17/2023 Lumbar radiculopathy (ICD-10 - M54.16) 01/17/2023 Closed stable burst fracture of twelfth thoracic vertebra, initial encounter (ICD-10 - S22.081A) Patient symptoms and clinical findings reviewed, treatment options discussed. All questions and concerns addressed. I recommended limited activity, TLSO when upright. Return visit 4 weeks, continue symptomatic management with tramadol. Imaging studies shown to patient and family who are in the exam room with explanations about the source of the patient's pain 03/04/2023 Lumbar radiculopathy (ICD-10 - M54.16) Patient was never properly fitted for her TLSO by [employer]. I have fitted her properly today in the office and she states it already feels like it is supporting her back more. She would like to continue conservative treatment to see if her back pain improves now that her brace is fitted properly. Refill Tramadol today. Refer to outpatient PT in or near [facility] to help strength her back/legs. Follow up in one month with repeat lumbosacral xray. Xray reviewed today which shows previous L2 burst fracture. 04/01/2023 Lumbar radiculopathy (ICD-10 - M54.16) 04/01/2023 Closed stable burst fracture of twelfth thoracic vertebra, initial encounter (ICD-10 - S22.081A) Patient symptoms and clinical findings reviewed, treatment options discussed. All questions and concerns addressed. I recommended continued conservative treatment, TLSO when upright. Continue PT and progressing activity. Return visit 2 months, continue symptomatic management with tramadol. Imaging studies shown to patient and family who are in the exam room. Patient agreeable to plan. 05/30/2023 Lumbar radiculopathy (ICD-10 - M54.16) 05/30/2023 Closed stable burst fracture of twelfth thoracic vertebra, initial encounter (ICD-10 - S22.081A) Patient symptoms and clinical findings reviewed, treatment options discussed. All questions and concerns addressed. I recommended continued conservative treatment, TLSO for comfort. Continue PT and progressing activity. Return visit 2 months, continue symptomatic management with tramadol. Imaging studies shown to patient and family who are in the exam room which shows compression fracture is healing. If compression fracture is stable at next appt and patient has maintained decreased pain, will d/c TLSO brace. 05/30/2023 Lumbar radiculopathy (ICD-10 - M54.16) PLAN OF TREATMENT Pending Test Test Name Order Date Lumbosacral Spine AP/Lat-72817 3 Future Test Test Name Order Date Lumbosacral Spine AP/Lat-80223 3 Lumbosacral Spine AP/Lat-07401 3 Next Appt Details Provider Name:Kari Irby , 07/30/2023 02:00:00 PM, [address], [place], [address], Insurance Providers Payer Name Payer Address Payer Phone Subscriber Number Group Number Insured Name Patient Relationship to Insured Coverage Start Date Coverage End Date ID Medicare [address] [place] [phone] [id number] Melinda Stapleton Self - patient is the insured [facility] [employer] [address] [place] [address] [id number] StapletonMelinda pitts Self - patient is the insured MEDICAL (GENERAL) HISTORY Medical History History ICD Code Problem:Arthritis (disorder) , Status :: Active Problem:Hypertensive disorde r, systemic arterial (disorder) , Status :: Active Problem:Hypertensive disorde r, systemic arterial (disorder) , Status :: Active Problem:Obesity (disorder) , Status :: A ctive Problem:Viral hepatitis C (disorder) , S tatus :: Active heart disease arthritis osteoporosis back trouble high blood pressure Surgical History Surgery Date(Month/Year) THYROID SURGERY LUNG SURGERY HYSTERECTOMY THROAT SURGERY Hospitalization History Reason Date(Month/Year) stroke AFIB see surgical hx
[2023-06-13] MEDS: denosumab 60 mg SDV SUBCUT (15:35)
[2023-06-13 15:47] VITALS: BP 143/78; PULSE 74; RESP 16; TEMP 37.2; O2SAT 98
== END 2023-07-11 23:59 | disposition home or self-care (01) ==
PROVIDERS: PCP Family Medicine; Visit Provider Internal Medicine Rheumatology
DX: M05.79 Rheumatoid arthritis with rheumatoid factor of multiple sites without organ or systems involvement (principal)
CPT/HCPCS: 96372; J0897

== ENCOUNTER → 2023-07-25 14:15 | Outpatient (BNVA) | payer MEDICARE, BC, SELFPAY | PROVIDERS: PCP Family Medicine; Visit Provider Internal Medicine Rheumatology | DX: Z79.899 Other long term (current) drug therapy (principal); M05.79 Rheumatoid arthritis with rheumatoid factor of multiple sites without organ or systems involvement; M25.569 Pain in unspecified knee; M19.041 Primary osteoarthritis, right hand; M19.042 Primary osteoarthritis, left hand; Z71.85 Encounter for immunization safety counseling; M10.9 Gout, unspecified | CPT/HCPCS: 36415; 80076; 82565; 84550; 85025; 99214 ==

== ENCOUNTER → 2023-09-30 12:18 | Outpatient (BNVA) | payer MEDICARE, BC, SELFPAY | PROVIDERS: PCP Family Medicine; Visit Provider Internal Medicine Rheumatology | DX: Z79.899 Other long term (current) drug therapy (principal); M05.79 Rheumatoid arthritis with rheumatoid factor of multiple sites without organ or systems involvement; M19.041 Primary osteoarthritis, right hand; M19.042 Primary osteoarthritis, left hand; Z71.85 Encounter for immunization safety counseling; M10.9 Gout, unspecified | CPT/HCPCS: 99214 ==

== ENCOUNTER 2023-09-30 14:20 | Emergency (ER) | payer MEDICARE, BC, SELFPAY ==
[2023-09-30 14:32] VITALS: BP 171/73; PULSE 67; RESP 12; TEMP 36.4; O2SAT 99; BMI 22.6
--- NOTE | 2023-09-30 14:38 | ED_ITS ---
HPI - Recheck/Abnormal Lab/Rx General: Chief Complaint: Recheck/Abnormal Lab/Rx Stated Complaint: high blood pressure Time Seen by Provider: 09/30/23 14:38 History of Present Illness: 77-year-old female presents to the emerg ency department after being seen in rheumatology clinic. They state that the blood pressure was elevated at that time the patient received 0.1 mg of clonidine and the concern was that the patient's blood pressure continued to stay elevated. Now in the emergency department is 171/73 she is asymptomatic she states she has no chest pain or shortness of breath. She has no dizziness or lightheaded feeling. She does not have a headache. Review of Systems General: Reports: 10 or more systems reviewed and unremarkable except in HPI and below Card: Denies: chest pain or palpitations Resp: Denies: dyspnea or wheezing Neuro: Denies: headache(s), numbness in extremities or dizziness [facility] ED PFSH: Medical History Gout, arthritis Immunization counseling High risk medication use Osteoarthritis of hands, bilateral Seropositive rheumatoid arthritis of multiple sites Atrial fibrillation High blood pressure Arthritis Stroke Aortic stenosis Hiatal hernia Graves disease Status post iodine treatment Shingles outbreak Hair loss Benign skin lesion of face Low back pain with sciatica Hyperlipidemia Left sciatic nerve pain Depression History of hepatitis C Hypertension Hypothyroidism Surgical History History of thyroid surgery History of lung surgery After aspiration from hiatal hernia wedge resection H/O: hysterectomy Family History Other CAD (coronary artery disease) Diabetes Hypertension Stroke Social History Smoking and tobacco/nicotine status: never used tobacco/nicotine Second hand smoke exposure: No Alcohol intake: never Substance/Drug Use: never Lives independently: No Household members: children Marital status: / service: No Current occupational status: retired Current gender identity: Female Physical Exam Narrative: EXAM NARRATIVE: Constitutional: the patient appears well nourished and of normal development. Vital signs as documented. No acute distress at present. Alert and oriented-to person, place, time and situation. Head, eyes, ears, nose, mouth, throat: Normocephalic, atraumatic. Pupils-equal, round, reactive to light. No scleral icterus. Normal-appearing external ears. Normal appearing nasal turbinates, no drainage. No obvious oral lesions, posterior oropharynx without erythema or exudates. Neck: Supple, trachea is midline, no lymphadenopathy, no jugular venous distens ion, thyromegaly, or carotid bruits. Carotid upstrokes are brisk bilaterally. Lungs: clear to auscultation to all lung lovell. Symmetrical rise and fall of chest, no obvious signs of increased work of breathing at present. Cardiac: Regular rate and rhythm, positive S1, S2. No murmurs, rubs or gallops that I can appreciate Abdomen: Soft, non-tender to palpation, normal active bowel sounds to all quadrants. No palpable masses, no organomegaly and abdominal bruits. Extremities: 2+ pulses in the upper extremities that are equal bilaterally, 2+ pulses in the lower extremities that are equal bilaterally. Non-edematous. Moves all extremities well, sensation to all extremities are noted. Skin: Warm, dry, intact. Course Vital Signs: Vital signs: Vital Signs Temperature 97.6 F 09/30/23 14:32 Pulse Rate 73 09/30/23 17:11 Respiratory Rate 20 H 09/30/23 17:11 Blood Pressure 133/69 09/30/23 17:11 Pulse Oximetry 97 09/30/23 17:11 Oxygen Delivery Me thod Room Air 09/30/23 14:32 MDM - Recheck/Abnormal Lab/Rx Medical Decision Making Evaluation of the patient's blood pressure demonstrates 134/65 this is most likely resultant from the patient taking p.o. clonidine. We will monitor and reevaluate. All radiology interpretation(s) finalized by discharge Discharge Plan Discharge Patient Disposition: Home Clinical Impression: Hypertension, uncontrolled Condition: Stable Prescriptions: New clonidine HCl 0.1 mg tablet 0.1 mg PO ONCE Qty: 14 0RF No Action aspirin 81 mg tablet,delayed release (DR/EC) 81 mg PO DAILY valsartan [Diovan] 320 mg tablet 320 mg PO DAILY Qty: 90 3RF cetirizine [Zyrtec] 10 mg tablet 10 mg PO DAILY PRN (Reason: allergy symptoms) Qty: 90 2RF potassium chloride 10 mEq tablet extended release See Rx Instructions .ROUTE .COMPLEX Qty: 90 1RF Dose Instruction: TAKE ONE TABLET BY MOUTH EVERY DAY Rx Instructions: TAKE ONE TABLET BY MOUTH EVERY DAY docusate sodium 100 mg capsule 100 mg PO DAILY atorvastatin 40 mg tablet 40 mg PO DAILY biotin 10,000 mcg capsule PO amlodipine 5 mg tablet 5 mg PO DAILY leflunomide 10 mg tablet 10 mg PO DAILY Qty: 90 1RF Xarelto 20 mg tablet See Rx Instructions .ROUTE .COMPLEX Qty: 90 1RF Dose Instruction: TAKE ONE TABLET BY MOUTH DAILY take with evening meal Rx Instructions: TAKE ONE TABLET BY MOUTH DAILY take with evening meal acetaminophen [Tylenol Arthritis Pain] 650 mg tablet extended release See Rx Instructions PO Q8H PRN (Reason: pain) Qty: 180 1RF Rx Instructions: 1-2 tabs PO every 8 hours PRN; tramadol 50 mg tablet 50 mg PO .q4hr PRN (Reason: pain) Qty: 40 0RF cyclobenzaprine 5 mg tablet See Rx Instructions .ROUTE .COMPLEX Qty: 90 0RF Dose Instruction: Take 1 tablet by mouth three times daily as needed for muscle spasm Rx Instructions: Take 1 tablet by mouth three times daily as needed for muscle spasm prednisone 10 mg tablet See Rx Instructions PO .COMPLEX PRN (Reason: joint pain) Qty: 30 1RF Rx Instructions: take 1 or 2 tab daily for 3-7 days prn joint pain flare PO PRN; Probiotic 1 tab PO DAILY Refresh Dry Eye Therapy 1 drp ophthalmic (eye) QID Vitamin D3 1 tab PO DAILY multivitamin Tablet 1 tab PO DAILY Elderberry 1 cap PO DAILY levothyroxine 100 mcg tablet 100 mcg PO DAILY Discharge Orders: Discharge ED (Routine); Ordered 09/30/23 Ordered By: Jose C Smith Referrals: Ayesha Bhatia MD [Primary Care Provider] - Discharge Diet: Low Salt Discharge Activity: Resume usual activity Patient Instructions: Opioid Safety, Pain Management Activity Restrictions/Additional Instructions: Activity Restrictions/Additional Instructions: Thank you for choosing [facility] for your healthcare needs today. Please realize that you were seen in the Emergency Department and that we are providing you with an emergency medical screening exam and this may not be a complete and all inclusive of all the testing and or medical work-up that you may need to determine your ailment or severity of your illness. It is very important that you follow-up as instructed with your Primary care provider or Specialist for additional evaluation and to discuss your medical treatment plan. You may return to the Emergency Department should you have concerns or if your condition changes or worsens in any way. Coding Level of Care Code ED Quantitative Analyst for [employer]
[2023-09-30 16:00] VITALS: BP 170/86; PULSE 76; RESP 18; O2SAT 99
[2023-09-30 16:12] VITALS: BP 170/86
[2023-09-30] MEDS: cloNIDine 0.1 mg Tablet PO (16:12)
[2023-09-30 16:46] VITALS: BP 172/87; PULSE 72; RESP 19; O2SAT 96
[2023-09-30] MEDS: nitroglycerin 0.4 mg sublingual Tablet SUBLINGUAL (16:51)
[2023-09-30 17:11] VITALS: BP 133/69; PULSE 73; RESP 20; O2SAT 97
== END 2023-09-30 17:00 | disposition home or self-care (01) ==
PROVIDERS: Emergency Provider Internal Medicine; PCP Family Medicine
DX: I10 Essential (primary) hypertension (principal); Z79.82 Long term (current) use of aspirin; Z86.73 Personal history of transient ischemic attack (TIA), and cerebral infarction without residual deficits; E78.5 Hyperlipidemia, unspecified; Z86.19 Personal history of other infectious and parasitic diseases
CPT/HCPCS: 99283

== ENCOUNTER → 2024-02-05 09:52 | Outpatient (BNVA) | payer MEDICARE, BC, SELFPAY | PROVIDERS: PCP Family Medicine; Visit Provider Internal Medicine Rheumatology | DX: M05.79 Rheumatoid arthritis with rheumatoid factor of multiple sites without organ or systems involvement (principal); M19.041 Primary osteoarthritis, right hand; M19.042 Primary osteoarthritis, left hand; Z79.899 Other long term (current) drug therapy; Z71.85 Encounter for immunization safety counseling; M10.9 Gout, unspecified; Z90.2 Acquired absence of lung [part of]; S22.088A Other fracture of T11-T12 vertebra, initial encounter for closed fracture; X58.XXXA Exposure to other specified factors, initial encounter | CPT/HCPCS: 99214 ==

== ENCOUNTER → 2024-10-26 14:39 | Outpatient (BNVA) | payer MEDICARE, BC, SELFPAY | PROVIDERS: PCP Family Medicine; Visit Provider Internal Medicine Rheumatology | DX: M05.79 Rheumatoid arthritis with rheumatoid factor of multiple sites without organ or systems involvement (principal); M19.041 Primary osteoarthritis, right hand; M19.042 Primary osteoarthritis, left hand; Z79.899 Other long term (current) drug therapy; Z71.85 Encounter for immunization safety counseling; M10.9 Gout, unspecified | CPT/HCPCS: 99214 ==